=== PATIENT | male | born 1955 | race African-American/Black ===

== ENCOUNTER 2021-07-18 11:52 | Emergency (ER) | payer MEDICARE ==
[2021-07-18] MEDS ORDERED: Aspirin Chewable 81 MG TAB ONE (12:22)
[2021-07-18 12:26] LABS: #Basophils 0.1 10x3/uL (0.0-0.2); #Eosinphils 0.8 10x3/uL (0.0-0.5); #Monocytes 0.5 10x3/uL (0.0-1.1); %Basophils 0.9 % (0.0-2.0); %Eosinophils 9.8 % (0.0-6.0); %Lymphocytes 24.7 % (18.0-47.0); %Monocytes 6.3 % (0.0-10.0); %Neutrophils 58.2 % (40.0-75.0); Mean Corpuscular HGB CONC 32.6 g/dL (32.0-36.0); Mean Corpuscular Hemoglobin 26.1 pg (27.0-33.0); Mean Platelet Volume 11.1 fl (7.4-10.4); Platelet Count 219 10x3/uL (150-450); RBC Distribution Width 13.6 % (11.5-14.5); Red Blood Cell (RBC) Count 5.75 10x6/uL (4.32-5.72); White Blood Cell (WBC) Count 8.5 10x3/uL (3.5-10.5)
[2021-07-18 12:48] LABS: ALT (SGPT) 47 U/L (8-55); AST (SGOT) 24 U/L (5-34); Albumin 4.4 g/dL (3.4-4.8); Alkaline Phosphatase 110 U/L (40-110); Anion Gap 12 mmol/L (10-20); BUN (Urea Nitrogen) 21 mg/dL (8.4-25.7); Bilirubin, Total 0.5 mg/dL (0.2-1.2); Calc. Creatinine Clearance 0 mL/min (70-130); Calcium 8.7 mg/dL (7.8-10.44); Carbon Dioxide 14 mmol/L (23-31); Chloride 113 mmol/L (98-107); Globulin 3.1 g/dL (2.4-3.5); Glucose 173 mg/dL (80-115); Lipase 22 U/L (8-78); Potassium 3.9 mmol/L (3.5-5.1); Protein, Total 7.5 g/dL (5.8-8.1); Sodium 135 mmol/L (136-145)
[2021-07-18 14:08] LABS: Actual Bicarbonate (HCO3v) 15 mEq/L (22-28); Base Excess -10.2 mEq/L (-2.0 to +3.0); Calcium, Ionized (venous) 1.19 mmol/L (1.16-1.32); Chloride (VBG) 111 mmol/L (98-106); Potassium (VBG) 3.75 mmol/L (3.70-5.30); Puncture Site Other Site; RapidComm Collect By Lab; Sodium 139.2 mmol/L (133-146); pH (venous) 7.27 (7.32-7.43)
[2021-07-18] MEDS ORDERED: Ondansetron PF 4 MG/2 ML Vial ONE (14:59)
[2021-07-18] MEDS ORDERED: Albuterol Sulfate 2.5 mg/3 ml Neb ONE ×3 (15:12→17:24)
[2021-07-18] MEDS ORDERED: methylPREDNISolone Sod Succ/PF 125 MG/2 ML VIAL ONE (15:12)
[2021-07-18] MEDS ORDERED: Ipratropium Bromide 2.5 ml Neb ONE ×2 (15:12→17:24)
[2021-07-18 17:21] LABS: SARS-CoV-2 NAA Rapid Test Not Detected (NotDetected)
== END 2021-07-18 18:10 | disposition home or self-care (01) ==
LOC: CSHERS 11:52
DX: J45.901 Unspecified asthma with (acute) exacerbation (principal); E87.2 Acidosis; J06.9 Acute upper respiratory infection, unspecified; I25.2 Old myocardial infarction; J45.909 Unspecified asthma, uncomplicated; I10 Essential (primary) hypertension; Z20.822 Contact with and (suspected) exposure to COVID-19; Z79.899 Other long term (current) drug therapy
CPT/HCPCS: 0240U; 71045; 71275; 80053; 82805; 82962; 83690; 83880; 84484; 85025; 93005; 96374; 96375; 99285; 36415; 36416; J2405; J2930; J7611

== ENCOUNTER 2021-09-10 11:23 | Emergency (ER) | payer MEDICARE ==
[2021-09-10] MEDS ORDERED: Magnesium 2 GM/50 ML BAG (IN WATER) ONE (11:53)
[2021-09-10] MEDS ORDERED: Lorazepam 2 MG/ML VIAL ONE (12:09)
[2021-09-10 12:26] LABS: #Basophils 0.1 10x3/uL (0.0-0.2); #Eosinphils 1.9 10x3/uL (0.0-0.5); #Monocytes 0.4 10x3/uL (0.0-1.1); #Neutrophils 5.8 10x3/uL (1.5-8.4); %Basophils 0.6 % (0.0-2.0); %Eosinophils 18.8 % (0.0-6.0); %Monocytes 4.3 % (0.0-10.0); %Neutrophils 57.8 % (40.0-75.0); Hemoglobin 14.1 g/dL (13.5-17.5); Mean Corpuscular HGB CONC 32.5 g/dL (32.0-36.0); Mean Corpuscular Hemoglobin 26.7 pg (27.0-33.0); Mean Corpuscular Volume 82.2 fl (81.2-95.1); Mean Platelet Volume 11.7 fl (7.4-10.4); Platelet Count 197 10x3/uL (150-450); RBC Distribution Width 13.6 % (11.5-14.5); Red Blood Cell (RBC) Count 5.28 10x6/uL (4.32-5.72); White Blood Cell (WBC) Count 10.1 10x3/uL (3.5-10.5)
[2021-09-10 12:38] LABS: ALT (SGPT) 12 U/L (8-55); AST (SGOT) 14 U/L (5-34); Albumin 3.9 g/dL (3.4-4.8); Alkaline Phosphatase 112 U/L (40-110); Anion Gap 15 mmol/L (10-20); BUN (Urea Nitrogen) 12 mg/dL (8.4-25.7); Bilirubin, Total 0.8 mg/dL (0.2-1.2); CK (CPK) 160 U/L (30-200); Calc. Creatinine Clearance 0 mL/min (70-130); Calcium 9.1 mg/dL (7.8-10.44); Carbon Dioxide 26 mmol/L (23-31); Chloride 101 mmol/L (98-107); Globulin 3.1 g/dL (2.4-3.5); Glucose 403 mg/dL (80-115); Lipase 22 U/L (8-78); Potassium 4.1 mmol/L (3.5-5.1); Sodium 138 mmol/L (136-145)
[2021-09-10 12:59] LABS: Magnesium 1.7 mg/dL (1.6-2.6); Phosphorus 2.3 mg/dL (2.3-4.7)
[2021-09-10 13:41] LABS: SARS-CoV-2 NAA Rapid Test Not Detected (NotDetected)
[2021-09-10 15:35] LABS: Lactic Acid 1.5 mmol/L (0.5-2.2)
[2021-09-10] MEDS ORDERED: Albuterol Sulfate 2.5 mg/3 ml Neb ONE (15:39)
== END 2021-09-10 16:30 | disposition home or self-care (01) ==
LOC: CSHERS 11:23
DX: J45.901 Unspecified asthma with (acute) exacerbation (principal); Z20.822 Contact with and (suspected) exposure to COVID-19; I10 Essential (primary) hypertension; I25.2 Old myocardial infarction; E11.9 Type 2 diabetes mellitus without complications; Z79.899 Other long term (current) drug therapy
CPT/HCPCS: 36415; 71045; 71275; 80053; 82010; 82550; 83605; 83690; 83735; 83880; 84100; 84484; 85025; 85379; 87040; 87804; 93005; 93010; 94640; 94760; 96374; 96375; J2060; J3475; J7611; J7620; U0002

== ENCOUNTER 2021-09-11 21:39 | Inpatient (IN) | payer MEDICARE ==
[2021-09-11] MEDS ORDERED: Albuterol Sulfate 2.5 mg/0.5 ml Neb ONE (22:16)
[2021-09-11 22:48] LABS: SARS-CoV-2 NAA Rapid Test Not Detected (NotDetected)
[2021-09-11 22:58] LABS: #Eosinphils 1.2 10x3/uL (0.0-0.5); #Monocytes 0.5 10x3/uL (0.0-1.1); #Neutrophils 7.4 10x3/uL (1.5-8.4); %Basophils 0.4 % (0.0-2.0); %Eosinophils 10.8 % (0.0-6.0); %Lymphocytes 14.3 % (18.0-47.0); %Monocytes 4.9 % (0.0-10.0); %Neutrophils 69.1 % (40.0-75.0); Hemoglobin 14.5 g/dL (13.5-17.5); Mean Corpuscular HGB CONC 32.9 g/dL (32.0-36.0); Mean Corpuscular Hemoglobin 26.7 pg (27.0-33.0); Mean Corpuscular Volume 81.1 fl (81.2-95.1); Mean Platelet Volume 11.1 fl (7.4-10.4); Platelet Count 215 10x3/uL (150-450); RBC Distribution Width 13.8 % (11.5-14.5); Red Blood Cell (RBC) Count 5.44 10x6/uL (4.32-5.72); White Blood Cell (WBC) Count 10.7 10x3/uL (3.5-10.5)
[2021-09-11 23:05] LABS: ALT (SGPT) 12 U/L (8-55); AST (SGOT) 14 U/L (5-34); Albumin 4.1 g/dL (3.4-4.8); Alkaline Phosphatase 110 U/L (40-110); Anion Gap 14 mmol/L (10-20); BUN (Urea Nitrogen) 19 mg/dL (8.4-25.7); Bilirubin, Total 0.8 mg/dL (0.2-1.2); Calc. Creatinine Clearance 0 mL/min (70-130); Calcium 9.3 mg/dL (7.8-10.44); Carbon Dioxide 28 mmol/L (23-31); Chloride 101 mmol/L (98-107); Globulin 3.1 g/dL (2.4-3.5); Glucose 115 mg/dL (80-115); Lipase 13 U/L (8-78); Potassium 3.5 mmol/L (3.5-5.1); Protein, Total 7.2 g/dL (5.8-8.1); Sodium 139 mmol/L (136-145)
[2021-09-11 23:29] LABS: Actual Bicarbonate (HCO3v) 26 mEq/L (22-28); Base Excess 0.9 mEq/L (-2.0 to +3.0); Calcium, Ionized (venous) 1.11 mmol/L (1.16-1.32); Chloride (VBG) 101 mmol/L (98-106); Hemoglobin (Hb) 15.6 g/dL (12.6-17.4); Potassium (VBG) 3.48 mmol/L (3.70-5.30); Puncture Site Other Site
[2021-09-11] MEDS ORDERED: Guaifenesin DM 100-10/5 ML UDCUP PO PRN (23:36)
[2021-09-11] MEDS ORDERED: Dextrose 5% in Water 1,000 ML IV PRN (23:43)
[2021-09-11] MEDS ORDERED: Dextrose 50% Abboject 50 ML SYRINGE SLOW IVP PRN (23:43)
[2021-09-11] MEDS ORDERED: Calcium Carbonate 500 MG ChewTAB PO PRN (23:59)
[2021-09-11] MEDS ORDERED: Senokot S 8.6-50 MG TAB PO PRN (23:59)
[2021-09-11] MEDS ORDERED: Zolpidem Tartrate 5 MG TAB PO PRN (23:59)
[2021-09-11] MEDS ORDERED: Acetaminophen 325 MG TAB PO PRN (23:59)
[2021-09-12] MEDS ORDERED: methylPREDNISolone Sod Succ/PF 125 MG/2 ML VIAL ONE (00:03)
[2021-09-12] MEDS ORDERED: Magnesium 2 GM/50 ML BAG (IN WATER) ONE (00:04)
[2021-09-12] MEDS ORDERED: Promethazine HCl 25 MG/ML VIAL ONE (00:13)
[2021-09-12 02:34] VITALS: BMI 26.6
[2021-09-12] MEDS: guaiFENesin/Codeine Phosphate 100 mg/10 mg 5 ml UD Cup PO SCH (03:02)
[2021-09-12 04:28] LABS: #Eosinphils 0.8 10x3/uL (0.0-0.5); #Monocytes 0.1 10x3/uL (0.0-1.1); #Neutrophils 8.2 10x3/uL (1.5-8.4); %Basophils 0.3 % (0.0-2.0); %Eosinophils 7.5 % (0.0-6.0); %Lymphocytes 7.8 % (18.0-47.0); %Monocytes 1.2 % (0.0-10.0); %Neutrophils 82.7 % (40.0-75.0); Hemoglobin 13.9 g/dL (13.5-17.5); Mean Corpuscular HGB CONC 32.3 g/dL (32.0-36.0); Mean Corpuscular Hemoglobin 26.2 pg (27.0-33.0); Mean Corpuscular Volume 81.3 fl (81.2-95.1); Mean Platelet Volume 11.6 fl (7.4-10.4); Platelet Count 207 10x3/uL (150-450); RBC Distribution Width 13.7 % (11.5-14.5)
[2021-09-12 04:43] LABS: Anion Gap 15 mmol/L (10-20); BUN (Urea Nitrogen) 21 mg/dL (8.4-25.7); Calc. Creatinine Clearance 90 mL/min (70-130); Calcium 9.2 mg/dL (7.8-10.44); Carbon Dioxide 27 mmol/L (23-31); Chloride 100 mmol/L (98-107); Glucose 178 mg/dL (80-115); Potassium 3.9 mmol/L (3.5-5.1); Sodium 138 mmol/L (136-145)
[2021-09-12] MEDS: methylPREDNISolone Sod Succ 40 MG VIAL IVP SCH ×3 (05:06→22:51)
[2021-09-12] MEDS: Amlodipine 10 MG TAB PO SCH (08:58)
[2021-09-12] MEDS: Benzonatate 100 MG CAP PO SCH ×3 (08:59→20:37)
[2021-09-12] MEDS: Carvedilol 3.125 MG TAB PO SCH ×2 (08:59→20:37)
[2021-09-12] MEDS: Clopidogrel Bisulfate 75 MG TAB PO SCH (08:59)
[2021-09-12] MEDS: Enoxaparin Sodium 40 MG/0.4 ML SYRINGE SC SCH (08:59)
[2021-09-12] MEDS: Azithromycin 500 MG in Sodium Chloride 0.9% 250 ML 250 ML IVPB SCH (08:59)
[2021-09-12] MEDS: Famotidine 20 MG TAB PO SCH ×2 (08:59→20:37)
[2021-09-12] MEDS: Mometasone 200 MCG/Formoterol 5 MCG 120 PUFF INHALER INH SCH ×2 (09:03→19:20)
[2021-09-12] MEDS: HumaLOG 300 UNITS/3 ML VIAL SC PRN ×3 (09:06→15:58)
[2021-09-12] MEDS: Divalproex Sodium DR 500 MG TAB PO SCH ×2 (09:28→20:37)
[2021-09-12 12:51] LABS: Hemoglobin A1c 9.5 % (4.0-6.0)
[2021-09-12] MEDS ORDERED: Non-Formulary Medication 1 EACH (Tadalafil [Tadalafil] 20 MG Tablet) PO PRN (16:04)
[2021-09-12] MEDS ORDERED: Dextrose 50% Abboject 50 ML SYRINGE SLOW IVP PRN (16:05)
[2021-09-12] MEDS ORDERED: Dextrose 5% in Water 1,000 ML IV PRN (16:05)
[2021-09-12] MEDS: Atorvastatin Calcium 40 MG TAB PO SCH (20:37)
[2021-09-12] MEDS: Escitalopram Oxalate 10 mg Tablet PO SCH (20:37)
[2021-09-12] MEDS: Lantus 1000 UNITS/10 ML VIAL SC SCH (20:38)
[2021-09-12] MEDS: DIFLUPREDNATE EA EYE SCH (20:39)
[2021-09-13] MEDS: Insulin Regular 300 UNITS/3 ML VIAL SC PRN ×5 (00:47→21:11)
[2021-09-13] MEDS: guaiFENesin/Codeine Phosphate 100 mg/10 mg 5 ml UD Cup PO SCH (00:47)
[2021-09-13] MEDS: methylPREDNISolone Sod Succ 40 MG VIAL IVP SCH ×3 (06:15→21:11)
[2021-09-13] MEDS: Mometasone 200 MCG/Formoterol 5 MCG 120 PUFF INHALER INH SCH ×2 (07:03→22:40)
[2021-09-13] MEDS: Azithromycin 500 MG in Sodium Chloride 0.9% 250 ML 250 ML IVPB SCH (08:09)
[2021-09-13] MEDS: DIFLUPREDNATE EA EYE SCH ×4 (08:09→21:12)
[2021-09-13] MEDS: Carvedilol 3.125 MG TAB PO SCH ×2 (08:10→20:57)
[2021-09-13] MEDS: Famotidine 20 MG TAB PO SCH ×2 (08:10→20:58)
[2021-09-13] MEDS: Amlodipine 10 MG TAB PO SCH (08:10)
[2021-09-13] MEDS: Clopidogrel Bisulfate 75 MG TAB PO SCH (08:10)
[2021-09-13] MEDS: Divalproex Sodium DR 500 MG TAB PO SCH ×2 (08:11→20:56)
[2021-09-13] MEDS: Benzonatate 100 MG CAP PO SCH ×3 (08:11→20:57)
[2021-09-13] MEDS: Enoxaparin Sodium 40 MG/0.4 ML SYRINGE SC SCH (08:11)
[2021-09-13] MEDS ORDERED: Lantus 1000 UNITS/10 ML VIAL SC SCH (09:00)
[2021-09-13] MEDS ORDERED: HumaLOG 300 UNITS/3 ML VIAL SC SCH (14:00)
[2021-09-13] MEDS ORDERED: Insulin Regular 300 UNITS/3 ML VIAL SC SCH (14:00)
[2021-09-13] MEDS: Atorvastatin Calcium 40 MG TAB PO SCH (20:57)
[2021-09-13] MEDS: Escitalopram Oxalate 10 mg Tablet PO SCH (20:58)
[2021-09-13] MEDS: Lantus 1000 UNITS/10 ML VIAL SC SCH (21:03)
[2021-09-14] MEDS: Mometasone 200 MCG/Formoterol 5 MCG 120 PUFF INHALER INH SCH (08:07)
[2021-09-14] MEDS: Insulin Regular 300 UNITS/3 ML VIAL SC PRN ×2 (08:11→11:52)
[2021-09-14] MEDS: Amlodipine 10 MG TAB PO SCH (08:17)
[2021-09-14] MEDS: Divalproex Sodium DR 500 MG TAB PO SCH (08:17)
[2021-09-14] MEDS: Azithromycin 500 MG in Sodium Chloride 0.9% 250 ML 250 ML IVPB SCH (08:18)
[2021-09-14] MEDS: Carvedilol 3.125 MG TAB PO SCH (08:18)
[2021-09-14] MEDS: Benzonatate 100 MG CAP PO SCH (08:18)
[2021-09-14] MEDS: Clopidogrel Bisulfate 75 MG TAB PO SCH (08:18)
[2021-09-14] MEDS: Enoxaparin Sodium 40 MG/0.4 ML SYRINGE SC SCH (08:19)
[2021-09-14] MEDS: DIFLUPREDNATE EA EYE SCH (08:19)
[2021-09-14] MEDS: Famotidine 20 MG TAB PO SCH (08:19)
[2021-09-14] MEDS ORDERED: Lantus 1000 UNITS/10 ML VIAL SC SCH (09:00)
[2021-09-14 12:28] VITALS: BP 145/75
[2021-09-14 12:32] VITALS: TEMP 98.2
[2021-09-15] MEDS ORDERED: Azithromycin 250 MG TAB PO SCH (09:00)
== END 2021-09-14 12:55 | disposition home or self-care (01) | DRG 189 ==
LOC: CSHERS 21:39 → EEVIPCON 23:58 → CSHIMCU 23:58 → UNDOADMIN 09-12 02:23 → CSHIMCU 09-12 02:23
PROVIDERS: ADMIT Student in an Organized Health Care Education/Training Program; ATTEND Hospitalist
PROC: 5A09357 Assistance with Respiratory Ventilation, Less than 24 Consecutive Hours, Continuous Positive Airway Pressure (ICD-10-PCS; principal; 2021-09-11)
DX: J96.01 Acute respiratory failure with hypoxia (principal); J45.901 Unspecified asthma with (acute) exacerbation; R65.10 Systemic inflammatory response syndrome (SIRS) of non-infectious origin without acute organ dysfunction; Z20.822 Contact with and (suspected) exposure to COVID-19; I25.10 Atherosclerotic heart disease of native coronary artery without angina pectoris; K21.9 Gastro-esophageal reflux disease without esophagitis; I10 Essential (primary) hypertension; E78.2 Mixed hyperlipidemia; E11.65 Type 2 diabetes mellitus with hyperglycemia; Z79.4 Long term (current) use of insulin; Z95.5 Presence of coronary angioplasty implant and graft; Z88.8 Allergy status to other drugs, medicaments and biological substances; Z79.02 Long term (current) use of antithrombotics/antiplatelets; Z79.899 Other long term (current) drug therapy; Z87.891 Personal history of nicotine dependence; Z90.89 Acquired absence of other organs
CPT/HCPCS: 36415; 36416; 71045; 71275; 80048; 80053; 82010; 82550; 82805; 83036; 83605; 83690; 83735; 83880; 84100; 84484; 85025; 85379; 87040; 87804; 93005; 94640; 94660; 94664; 94760; J0456; J1650; J1815; J2060; J2550; J2920; J2930; J3475; J7050; J7611; J7620; U0002

== ENCOUNTER 2021-10-31 10:36 | Inpatient (IN) | payer MEDICARE ==
[2021-10-31 12:12] LABS: Hemoglobin 14.4 g/dL (13.5-17.5); Mean Corpuscular HGB CONC 32.8 g/dL (32.0-36.0); Mean Corpuscular Hemoglobin 26.9 pg (27.0-33.0); Mean Corpuscular Volume 81.9 fl (81.2-95.1); Mean Platelet Volume 12.1 fl (7.4-10.4); Platelet Count 194 10x3/uL (150-450); Red Blood Cell (RBC) Count 5.36 10x6/uL (4.32-5.72); White Blood Cell (WBC) Count 7.6 10x3/uL (3.5-10.5)
[2021-10-31 12:14] LABS: MDiff Complete? YES
[2021-10-31 12:20] LABS: Bilirubin Neg (Negative); Blood, Urine Negative (Negative); Clarity Clear (Clear); Glucose, Urine (Dipstick) Normal (Negative); Ketone, Urine 5 mg/dL (Negative); Leukocyte 25 (Negative); Nitrite Negative (Negative); Protein, Urine (Dipstick) 30 mg/dl (Neg-Trace)
[2021-10-31 12:24] LABS: Bacteria/HPF None Seen HPF (None Seen); Mucous/LPF 1+ LPF (<2+); RBC/HPF 0-3 HPF (0-3); Squamous Epithelial 0-3 HPF (0-3); WBC/HPF 0-3 HPF (0-3)
[2021-10-31 12:28] LABS: ALT (SGPT) 11 U/L (8-55); AST (SGOT) 14 U/L (5-34); Alkaline Phosphatase 117 U/L (40-110); Anion Gap 16 mmol/L (10-20); BUN (Urea Nitrogen) 13 mg/dL (8.4-25.7); Bilirubin, Total 1.9 mg/dL (0.2-1.2); Calc. Creatinine Clearance 0 mL/min (70-130); Calcium 9.3 mg/dL (7.8-10.44); Carbon Dioxide 26 mmol/L (23-31); Chloride 104 mmol/L (98-107); Globulin 2.9 g/dL (2.4-3.5); Glucose 119 mg/dL (80-115); Lipase 15 U/L (8-78); Magnesium 1.9 mg/dL (1.6-2.6); Potassium 3.4 mmol/L (3.5-5.1); Protein, Total 6.9 g/dL (5.8-8.1); Sodium 143 mmol/L (136-145)
[2021-10-31] MEDS ORDERED: Ondansetron PF 4 MG/2 ML Vial ONE (12:38)
[2021-10-31] MEDS ORDERED: Ketorolac Tromethamine 30 MG/ML VIAL ONE (12:38)
[2021-10-31] MEDS ORDERED: EPINEPHrine 1 MG/ML AMP ONE (13:18)
[2021-10-31] MEDS ORDERED: methylPREDNISolone Sod Succ/PF 125 MG/2 ML VIAL ONE (13:18)
[2021-10-31] MEDS ORDERED: diphenhydrAMINE 50 MG/ML VIAL ONE (13:18)
[2021-10-31 13:19] LABS: Eosinophils 32 % (0-10); Lymphocytes 26 % (21-51); Monocytes 5 % (0-10); Neutrophil 36 % (42-75)
[2021-10-31] MEDS ORDERED: Famotidine/PF 20 mg/2ml Vial ONE (13:19)
[2021-10-31 13:28] LABS: Platelet Morphology Comment Appears Adequate
[2021-10-31] MEDS ORDERED: Lorazepam 2 MG/ML VIAL ONE ×2 (14:23→15:40)
[2021-10-31] MEDS ORDERED: Albuterol Sulfate 2.5 mg/3 ml Neb ONE (15:16)
[2021-10-31 15:41] LABS: Actual Bicarbonate (HCO3a) 26.5 mEq/L (22-28); Base Excess (BEa) -1.2 mEq/L (-2.0 to +3.0); CO2 Tension 56.2 mmHg (35.0-45.0); Calcium, Ionized (arterial) 1.13 mmol/L (1.12-1.30); Carboxyhemoglobin (COHb) 0.4 gm% (0.0-3.0); Potassium - ABG Lab 3.3 mmol/L (3.70-5.30); Puncture Site RFA; pH, Arterial 7.29 (7.35-7.45)
[2021-10-31 15:55] LABS: Amphetamine Not Detected (NotDetected); Barbiturates Screen Not Detected (NotDetected); Benzodiazepine Screen Not Detected (NotDetected); Cocaine Metabolite Screen Not Detected (NotDetected); Methadone Not Detected (NotDetected); Methamphetamine Not Detected (NotDetected); Opiate Screen Detected (NotDetected); Oxycodone Screen Not Detected (NotDetected); Phencyclidine (PCP) Not Detected (NotDetected); THC/Cannabinoid Screen Not Detected (NotDetected); Tricyclic Screen Not Detected (NotDetected)
[2021-10-31 16:11] LABS: SARS-CoV-2 NAA Rapid Test Not Detected (NotDetected)
[2021-10-31 16:12] LABS: Acetaminophen Less than 6.0 mcg/mL (10.0-30.0); Alcohol Less than 10 mg/dL (Less than 10); Salicylate Less than 8.0 mg/dL (15.0-30.0)
[2021-10-31] MEDS ORDERED: methylPREDNISolone Sod Succ 40 MG VIAL IVP SCH (18:00)
[2021-10-31] MEDS ORDERED: cefTRIAXone\\ROCEPHIN 1 GM in Sodium Chloride 0.9% 100 ML IVPB SCH ×3 (18:00→22:00)
[2021-10-31 18:29] VITALS: BMI 37.6
[2021-10-31] MEDS ORDERED: Acetaminophen 650 MG Suppository PR PRN (18:51)
[2021-10-31] MEDS ORDERED: Acetaminophen 325 MG TAB PO PRN (18:51)
[2021-10-31] MEDS ORDERED: Dextrose 5% in Water 1,000 ML IV PRN (19:00)
[2021-10-31] MEDS ORDERED: Dextrose 50% Abboject 50 ML SYRINGE SLOW IVP PRN (19:00)
[2021-10-31 19:38] LABS: INR-International Normal Ratio 1.1; PTT 25.6 sec (22.0-33.0); Prothrombin Time 11.8 sec (9.5-12.1)
[2021-10-31 19:40] LABS: Bilirubin, Direct 0.5 mg/dL (0.1-0.3); Bilirubin, Total 1.9 mg/dL (0.2-1.2); Phosphorus 2.5 mg/dL (2.3-4.7)
[2021-10-31] MEDS ORDERED: Azithromycin 500 MG in Sodium Chloride 0.9% 250 ML 250 ML IVPB SCH ×2 (20:00→21:00)
[2021-10-31 20:01] LABS: Thyroid Stimulating Hormone 0.6404 uIU/mL (0.35-4.94)
[2021-10-31] MEDS ORDERED: Gabapentin 100 MG CAP PO PRN (20:32)
[2021-10-31] MEDS ORDERED: Enoxaparin Sodium 40 MG/0.4 ML SYRINGE SC SCH (21:00)
[2021-10-31] MEDS ORDERED: Doxycycline 100 MG in Syringe 0 ML IVPB SCH (21:00)
[2021-10-31] MEDS ORDERED: Famotidine/PF 20 mg/2ml Vial SLOW IVP SCH (21:00)
[2021-10-31] MEDS: Doxycycline 100 MG in Sodium Chloride 0.9% 100 ML IVPB SCH (22:26)
[2021-10-31] MEDS: methylPREDNISolone Sod Succ 40 MG VIAL IVP SCH (22:28)
[2021-10-31] MEDS: HumaLOG 300 UNITS/3 ML VIAL SC PRN (22:43)
[2021-10-31 22:46] LABS: HIV (1/2) Antibody/Antigen Non-Reactive (NonReactive); HIV 1/2 INDEX 0.14 S/CO (<1.00)
[2021-10-31] MEDS: Ketorolac Tromethamine 10 MG TAB PO SCH (23:20)
[2021-11-01] MEDS: methylPREDNISolone Sod Succ 40 MG VIAL IVP SCH (04:10)
[2021-11-01] MEDS: HumaLOG 300 UNITS/3 ML VIAL SC PRN (04:10)
[2021-11-01 04:45] LABS: #Monocytes 0.1 10x3/uL (0.0-1.1); #Neutrophils 7.2 10x3/uL (1.5-8.4); %Lymphocytes 10.5 % (18.0-47.0); %Neutrophils 88.1 % (40.0-75.0); Hemoglobin 14.1 g/dL (13.5-17.5); Mean Corpuscular HGB CONC 33.3 g/dL (32.0-36.0); Mean Corpuscular Hemoglobin 26.9 pg (27.0-33.0); Mean Corpuscular Volume 80.9 fl (81.2-95.1); Mean Platelet Volume 11.7 fl (7.4-10.4); Platelet Count 198 10x3/uL (150-450); RBC Distribution Width 12.5 % (11.5-14.5); Red Blood Cell (RBC) Count 5.24 10x6/uL (4.32-5.72); White Blood Cell (WBC) Count 8.2 10x3/uL (3.5-10.5)
[2021-11-01 05:00] LABS: ALT (SGPT) 12 U/L (8-55); AST (SGOT) 15 U/L (5-34); Albumin 3.9 g/dL (3.4-4.8); Alkaline Phosphatase 112 U/L (40-110); Anion Gap 15 mmol/L (10-20); BUN (Urea Nitrogen) 20 mg/dL (8.4-25.7); Bilirubin, Total 1.2 mg/dL (0.2-1.2); Calc. Creatinine Clearance 126 mL/min (70-130); Calcium 8.8 mg/dL (7.8-10.44); Carbon Dioxide 22 mmol/L (23-31); Chloride 105 mmol/L (98-107); Globulin 2.9 g/dL (2.4-3.5); Glucose 216 mg/dL (80-115); Potassium 4.1 mmol/L (3.5-5.1); Protein, Total 6.8 g/dL (5.8-8.1); Sodium 138 mmol/L (136-145)
[2021-11-01] MEDS: Ketorolac Tromethamine 10 MG TAB PO SCH (05:46)
[2021-11-01] MEDS ORDERED: predniSONE 20 MG TAB PO SCH (08:00)
[2021-11-01] MEDS ORDERED: Famotidine 20 MG TAB PO SCH (09:00)
[2021-11-01] MEDS ORDERED: Carvedilol 3.125 MG TAB PO SCH (09:00)
[2021-11-01] MEDS ORDERED: Enoxaparin Sodium 40 MG/0.4 ML SYRINGE SC SCH (09:00)
[2021-11-01] MEDS ORDERED: Divalproex Sodium DR 500 MG TAB PO SCH (09:00)
[2021-11-01] MEDS ORDERED: Clopidogrel Bisulfate 75 MG TAB PO SCH (09:00)
[2021-11-01] MEDS: Doxycycline 100 MG in Sodium Chloride 0.9% 100 ML IVPB SCH (09:42)
[2021-11-01 11:34] VITALS: BP 126/69; TEMP 98.8
[2021-11-01 12:28] LABS: Hemoglobin A1c 8.7 % (4.0-6.0)
[2021-11-01 15:46] LABS: Hep C IgG Ab Non-Reactive (NonReactive); Hep C Index 0.14 S/CO (0-0.79)
[2021-11-01] MEDS ORDERED: Mometasone/Formoterol 200/5 60 PUFF INH SCH (18:30)
[2021-11-01] MEDS ORDERED: Atorvastatin Calcium 40 MG TAB PO SCH (21:00)
== END 2021-11-01 11:46 | disposition home or self-care (01) | DRG 727 ==
LOC: CSHERS 10:36 → CSHIMCU 16:56 → CSHTELE 20:41
PROVIDERS: ADMIT Family Medicine; ATTEND Family Medicine
DX: N45.1 Epididymitis (principal); J96.01 Acute respiratory failure with hypoxia; J96.02 Acute respiratory failure with hypercapnia; J45.901 Unspecified asthma with (acute) exacerbation; Z20.822 Contact with and (suspected) exposure to COVID-19; I25.10 Atherosclerotic heart disease of native coronary artery without angina pectoris; I45.10 Unspecified right bundle-branch block; R94.31 Abnormal electrocardiogram [ECG] [EKG]; R16.0 Hepatomegaly, not elsewhere classified; N50.3 Cyst of epididymis; K76.0 Fatty (change of) liver, not elsewhere classified; E11.9 Type 2 diabetes mellitus without complications; Z87.891 Personal history of nicotine dependence; Z95.5 Presence of coronary angioplasty implant and graft; Z90.89 Acquired absence of other organs
CPT/HCPCS: 36415; 36416; 36600; 71045; 74177; 76870; 80053; 80306; 80307; 81003; 81015; 82247; 82805; 83036; 83605; 83690; 83735; 84100; 84443; 84484; 85025; 85610; 85730; 86803; 87389; 87591; 93005; 93010; 93306; 93970; 93976; 94640; 96374; 96375; 96376; J0171; J0696; J1200; J1650; J1815; J1885; J2060; J2405; J2920; J2930; J3490; J7512; J7611; J7620; S0028

== ENCOUNTER 2022-03-05 14:51 | Inpatient (IN) | payer MEDICARE ==
[~2022-03-05 14:51] MED LIST: Iopamidol 370 76% 100 ML VIAL ONE
[2022-03-05] MEDS ORDERED: Albuterol Sulfate 2.5 mg/3 ml Neb ONE ×2 (15:10→15:34)
[2022-03-05] MEDS ORDERED: methylPREDNISolone Sod Succ/PF 125 MG/2 ML VIAL ONE (15:12)
[2022-03-05] MEDS ORDERED: Magnesium 2 GM/50 ML BAG (IN WATER) ONE (15:12)
[2022-03-05 15:33] LABS: #Monocytes 0.3 10x3/uL (0.0-1.1); #Neutrophils 2.8 10x3/uL (1.5-8.4); %Basophils 0.7 % (0.0-2.0); %Eosinophils 0.4 % (0.0-6.0); %Lymphocytes 29.1 % (18.0-47.0); %Monocytes 5.6 % (0.0-10.0); %Neutrophils 63.8 % (40.0-75.0); Hemoglobin 14.4 g/dL (13.5-17.5); Mean Corpuscular HGB CONC 33.3 g/dL (32.0-36.0); Mean Corpuscular Hemoglobin 26.3 pg (27.0-33.0); Mean Platelet Volume 11.8 fl (7.4-10.4); Platelet Count 242 10x3/uL (150-450); RBC Distribution Width 12.7 % (11.5-14.5); Red Blood Cell (RBC) Count 5.48 10x6/uL (4.32-5.72); White Blood Cell (WBC) Count 4.5 10x3/uL (3.5-10.5)
[2022-03-05 15:49] LABS: ALT (SGPT) 19 U/L (8-55); AST (SGOT) 23 U/L (5-34); Albumin 4.1 g/dL (3.4-4.8); Alkaline Phosphatase 111 U/L (40-110); Anion Gap 18 mmol/L (10-20); BUN (Urea Nitrogen) 16 mg/dL (8.4-25.7); Bilirubin, Total 1.2 mg/dL (0.2-1.2); CK (CPK) 207 U/L (30-200); Calc. Creatinine Clearance 0 mL/min (70-130); Calcium 9.5 mg/dL (7.8-10.44); Carbon Dioxide 22 mmol/L (23-31); Chloride 106 mmol/L (98-107); Estimated GFR 74; Globulin 3.1 g/dL (2.4-3.5); Glucose 113 mg/dL (80-115); Magnesium 1.8 mg/dL (1.6-2.6); Potassium 3.5 mmol/L (3.5-5.1); Protein, Total 7.2 g/dL (5.8-8.1); Sodium 142 mmol/L (136-145)
[2022-03-05 16:34] LABS: SARS-CoV-2 NAA Rapid Test Not Detected (NotDetected)
[2022-03-05 16:47] LABS: Actual Bicarbonate (HCO3a) 27.4 mEq/L (22-28); Base Excess (BEa) 1.7 mEq/L (-2.0 to +3.0); CO2 Tension 46.7 mmHg (35.0-45.0); Calcium, Ionized (arterial) 1.18 mmol/L (1.12-1.30); Carboxyhemoglobin (COHb) 0.4 gm% (0.0-3.0); Hemoglobin (Hb) 15.4 g/dL (14.0-18.0); Potassium - ABG Lab 3.1 mmol/L (3.70-5.30); Puncture Site LRA; RapidComm Collect By CP.BR1; pH, Arterial 7.39 (7.35-7.45)
[2022-03-05 16:52] LABS: ALV-art Gradient 431.375 mmHg (0-20)
[2022-03-05] MEDS ORDERED: Cefepime 2 GM VIAL ONE (17:37)
[2022-03-05] MEDS ORDERED: Senokot S 8.6-50 MG TAB PO PRN (17:40)
[2022-03-05] MEDS ORDERED: Ondansetron PF 4 MG/2 ML Vial IVP PRN (17:40)
[2022-03-05] MEDS ORDERED: Bisacodyl 5 MG TAB PO PRN (17:40)
[2022-03-05] MEDS ORDERED: Ondansetron ODT 4 MG TAB PO PRN (17:40)
[2022-03-05] MEDS ORDERED: Bisacodyl 10 MG SUPP PR PRN (17:40)
[2022-03-05] MEDS ORDERED: Dextrose 5% in Water 1,000 ML IV PRN ×2 (17:46→19:36)
[2022-03-05] MEDS ORDERED: Dextrose 50% Abboject 50 ML SYRINGE SLOW IVP PRN ×2 (17:46→19:36)
[2022-03-05] MEDS ORDERED: Guaifenesin DM 100-10/5 ML UDCUP PO PRN (19:40)
[2022-03-05] MEDS: Carvedilol 3.125 MG TAB PO SCH (20:40)
[2022-03-05] MEDS: Atorvastatin Calcium 40 MG TAB PO SCH (20:40)
[2022-03-05] MEDS: Montelukast Sodium 10 mg Tablet PO SCH (20:40)
[2022-03-05] MEDS: methylPREDNISolone Sod Succ 40 MG VIAL IVP SCH (20:40)
[2022-03-05] MEDS: Escitalopram Oxalate 10 mg Tablet PO SCH (20:40)
[2022-03-05] MEDS: guaiFENesin ER 600 MG TAB PO SCH (20:40)
[2022-03-05] MEDS: Acetylcysteine 800 MG/4 ML VIAL PO SCH (20:40)
[2022-03-05] MEDS: Cefdinir 300 MG CAP PO SCH (20:44)
[2022-03-05] MEDS: HumaLOG 300 UNITS/3 ML VIAL SC PRN (20:51)
[2022-03-05] MEDS ORDERED: Famotidine 20 MG TAB PO SCH (21:00)
[2022-03-05] MEDS ORDERED: Famotidine/PF 20 mg/2ml Vial SLOW IVP SCH (21:00)
[2022-03-05] MEDS ORDERED: Vancomycin HCl 1 GM in Sodium Chloride 0.9% 250 ML 300 ML IVPB SCH (21:00)
[2022-03-05] MEDS ORDERED: Mometasone/Formoterol 200/5 60 PUFF INH SCH (22:00)
[2022-03-05] MEDS ORDERED: Cefepime 2 GM in Sodium Chloride 0.9% 100 ML IVPB SCH (22:00)
[2022-03-05 22:34] LABS: Hemoglobin A1c 7.6 % (4.0-6.0)
[2022-03-06 04:17] LABS: Mean Corpuscular HGB CONC 33.1 g/dL (32.0-36.0); Mean Corpuscular Hemoglobin 25.7 pg (27.0-33.0); Mean Corpuscular Volume 77.8 fl (81.2-95.1); Mean Platelet Volume 11.9 fl (7.4-10.4); Platelet Count 243 10x3/uL (150-450); RBC Distribution Width 12.7 % (11.5-14.5); Red Blood Cell (RBC) Count 5.44 10x6/uL (4.32-5.72); White Blood Cell (WBC) Count 9.2 10x3/uL (3.5-10.5)
[2022-03-06 04:30] LABS: PTT 25.4 sec (22.0-33.0)
[2022-03-06 04:40] LABS: ALT (SGPT) 17 U/L (8-55); AST (SGOT) 14 U/L (5-34); Albumin 3.8 g/dL (3.4-4.8); Alkaline Phosphatase 115 U/L (40-110); Anion Gap 15 mmol/L (10-20); BUN (Urea Nitrogen) 17 mg/dL (8.4-25.7); Bilirubin, Direct 0.4 mg/dL (0.1-0.3); Bilirubin, Total 0.9 mg/dL (0.2-1.2); Calc. Creatinine Clearance 88 mL/min (70-130); Calcium 9.3 mg/dL (7.8-10.44); Carbon Dioxide 22 mmol/L (23-31); Cardiac Risk 3.1 (Less than 4.5); Chloride 107 mmol/L (98-107); Cholesterol 132 mg/dl (< 200 Desired); Estimated GFR 80; Glucose 293 mg/dL (80-115); HDL Cholesterol 42 mg/dL (>60 Neg Risk); LDL Cholesterol, Calculated 83 mg/dL; Magnesium 2.1 mg/dL (1.6-2.6); Potassium 4.1 mmol/L (3.5-5.1); Protein, Total 6.8 g/dL (5.8-8.1); Sodium 140 mmol/L (136-145); Triglycerides 37 mg/dL (Less than 150)
[2022-03-06] MEDS: methylPREDNISolone Sod Succ 40 MG VIAL IVP SCH (05:05)
[2022-03-06] MEDS: HumaLOG 300 UNITS/3 ML VIAL SC PRN ×4 (06:06→20:55)
[2022-03-06 06:11] LABS: MDiff Complete? YES; Manual Diff?? YES
[2022-03-06 06:19] VITALS: BMI 25.7
[2022-03-06] MEDS: Mometasone/Formoterol 200/5 60 PUFF INH SCH ×2 (06:25→19:00)
[2022-03-06 07:10] LABS: Band 2 % (5-11); Lymphocytes 7 % (21-51); Monocytes 1 % (0-10); Neutrophil 90 % (42-75)
[2022-03-06 07:11] LABS: Platelet Morphology Comment Appears Adequate
[2022-03-06] MEDS ORDERED: Non-Formulary Medication 1 EACH (Tadalafil [Tadalafil] 20 MG Tablet) PO SCH (09:00)
[2022-03-06] MEDS: Amlodipine 10 MG TAB PO SCH (09:05)
[2022-03-06] MEDS: Enoxaparin Sodium 40 MG/0.4 ML SYRINGE SC SCH (09:05)
[2022-03-06] MEDS: Clopidogrel Bisulfate 75 MG TAB PO SCH (09:06)
[2022-03-06] MEDS: Carvedilol 3.125 MG TAB PO SCH ×2 (09:06→20:51)
[2022-03-06] MEDS: guaiFENesin ER 600 MG TAB PO SCH ×2 (09:06→20:50)
[2022-03-06] MEDS: Fluticasone Propionate Nasal Spray 16 gm Bottle NASAL SCH (09:07)
[2022-03-06] MEDS: Acetylcysteine 800 MG/4 ML VIAL PO SCH ×2 (09:07→20:49)
[2022-03-06] MEDS: Loratadine 10 MG TAB PO SCH (09:11)
[2022-03-06] MEDS: Ascorbic Acid 500 mg Chewable Tablet PO SCH ×2 (09:11→20:50)
[2022-03-06] MEDS: Cefdinir 300 MG CAP PO SCH ×2 (09:17→20:50)
[2022-03-06] MEDS: Montelukast Sodium 10 mg Tablet PO SCH (20:50)
[2022-03-06] MEDS: Escitalopram Oxalate 10 mg Tablet PO SCH (20:50)
[2022-03-06] MEDS: Atorvastatin Calcium 40 MG TAB PO SCH (20:51)
[2022-03-06] MEDS: ALPRAZolam 0.5 MG TAB PO PRN (21:04)
[2022-03-07] MEDS: HYDROcodone/Acetaminophen 10/325 mg Tablet PO SCH ×4 (03:33→17:32)
[2022-03-07 04:56] LABS: #Monocytes 0.8 10x3/uL (0.0-1.1); #Neutrophils 13.3 10x3/uL (1.5-8.4); %Basophils 0.2 % (0.0-2.0); %Eosinophils 0.1 % (0.0-6.0); %Lymphocytes 12.9 % (18.0-47.0); %Neutrophils 81.4 % (40.0-75.0); Hemoglobin 13.8 g/dL (13.5-17.5); Mean Corpuscular Hemoglobin 25.7 pg (27.0-33.0); Mean Platelet Volume 11.5 fl (7.4-10.4); Platelet Count 235 10x3/uL (150-450); RBC Distribution Width 12.8 % (11.5-14.5); Red Blood Cell (RBC) Count 5.36 10x6/uL (4.32-5.72); White Blood Cell (WBC) Count 16.3 10x3/uL (3.5-10.5)
[2022-03-07 05:05] LABS: Anion Gap 14 mmol/L (10-20); BUN (Urea Nitrogen) 19 mg/dL (8.4-25.7); Calc. Creatinine Clearance 100 mL/min (70-130); Calcium 8.9 mg/dL (7.8-10.44); Carbon Dioxide 26 mmol/L (23-31); Chloride 106 mmol/L (98-107); Estimated GFR 94; Glucose 128 mg/dL (80-115); Magnesium 2.1 mg/dL (1.6-2.6); Potassium 3.4 mmol/L (3.5-5.1); Sodium 143 mmol/L (136-145)
[2022-03-07] MEDS ORDERED: Iopamidol 370 76% 100 ML VIAL ONE (08:00)
[2022-03-07] MEDS ORDERED: Potassium Chloride 20 MEQ TAB PO SCH (08:00)
[2022-03-07] MEDS: predniSONE 20 MG TAB PO SCH (09:14)
[2022-03-07] MEDS: Acetylcysteine 800 MG/4 ML VIAL PO SCH ×2 (09:14→21:03)
[2022-03-07] MEDS: guaiFENesin ER 600 MG TAB PO SCH ×2 (09:14→21:03)
[2022-03-07] MEDS: Ascorbic Acid 500 mg Chewable Tablet PO SCH ×2 (09:14→21:03)
[2022-03-07] MEDS: Loratadine 10 MG TAB PO SCH (09:14)
[2022-03-07] MEDS: Cefdinir 300 MG CAP PO SCH ×2 (09:14→21:03)
[2022-03-07] MEDS: Clopidogrel Bisulfate 75 MG TAB PO SCH (09:15)
[2022-03-07] MEDS: Carvedilol 3.125 MG TAB PO SCH ×2 (09:15→21:03)
[2022-03-07] MEDS: Amlodipine 10 MG TAB PO SCH (09:16)
[2022-03-07] MEDS: Enoxaparin Sodium 40 MG/0.4 ML SYRINGE SC SCH (09:17)
[2022-03-07] MEDS: Fluticasone Propionate Nasal Spray 16 gm Bottle NASAL SCH ×2 (09:17→21:03)
[2022-03-07] MEDS: Mometasone/Formoterol 200/5 60 PUFF INH SCH ×2 (10:20→21:30)
[2022-03-07] MEDS ORDERED: Lactated Ringer's 1,000 ML IV SCH (16:45)
[2022-03-07] MEDS: Montelukast Sodium 10 mg Tablet PO SCH (21:03)
[2022-03-07] MEDS: Escitalopram Oxalate 10 mg Tablet PO SCH (21:03)
[2022-03-07] MEDS: Atorvastatin Calcium 40 MG TAB PO SCH (21:03)
[2022-03-07] MEDS: ALPRAZolam 0.5 MG TAB PO PRN (21:15)
[2022-03-08] MEDS: HYDROcodone/Acetaminophen 10/325 mg Tablet PO SCH ×3 (00:15→11:50)
[2022-03-08 05:31] LABS: Anion Gap 14 mmol/L (10-20); BUN (Urea Nitrogen) 17 mg/dL (8.4-25.7); Calc. Creatinine Clearance 103 mL/min (70-130); Calcium 8.4 mg/dL (7.8-10.44); Carbon Dioxide 26 mmol/L (23-31); Chloride 105 mmol/L (98-107); Estimated GFR 95; Glucose 179 mg/dL (80-115); Magnesium 1.8 mg/dL (1.6-2.6); Potassium 3.2 mmol/L (3.5-5.1); Sodium 142 mmol/L (136-145)
[2022-03-08 05:39] LABS: #Monocytes 0.6 10x3/uL (0.0-1.1); %Basophils 0.2 % (0.0-2.0); %Eosinophils 0.4 % (0.0-6.0); %Lymphocytes 22.1 % (18.0-47.0); %Monocytes 5.7 % (0.0-10.0); %Neutrophils 71.4 % (40.0-75.0); Hemoglobin 12.7 g/dL (13.5-17.5); Mean Corpuscular HGB CONC 34.1 g/dL (32.0-36.0); Mean Corpuscular Hemoglobin 26.4 pg (27.0-33.0); Mean Corpuscular Volume 77.3 fl (81.2-95.1); Mean Platelet Volume 11.7 fl (7.4-10.4); Platelet Count 192 10x3/uL (150-450); RBC Distribution Width 12.9 % (11.5-14.5); Red Blood Cell (RBC) Count 4.81 10x6/uL (4.32-5.72); White Blood Cell (WBC) Count 9.7 10x3/uL (3.5-10.5)
[2022-03-08] MEDS: HumaLOG 300 UNITS/3 ML VIAL SC PRN ×2 (05:47→11:51)
[2022-03-08] MEDS ORDERED: Potassium Chloride 40 MEQ in Premix Bag 1 BAG IVPB SCH (06:45)
[2022-03-08] MEDS: Mometasone/Formoterol 200/5 60 PUFF INH SCH (07:30)
[2022-03-08] MEDS ORDERED: Potassium Chloride 20 MEQ TAB PO SCH (08:00)
[2022-03-08] MEDS ORDERED: Magnesium 2 GM/50 ML(in water) 2 GM in Premix Bag 1 BAG IVPB SCH (08:00)
[2022-03-08] MEDS: Potassium Chloride 20 MEQ in Premix Bag 1 BAG IVPB SCH ×2 (08:21→12:59)
[2022-03-08] MEDS: Enoxaparin Sodium 40 MG/0.4 ML SYRINGE SC SCH (08:31)
[2022-03-08] MEDS: Clopidogrel Bisulfate 75 MG TAB PO SCH (08:32)
[2022-03-08] MEDS: Cefdinir 300 MG CAP PO SCH (08:32)
[2022-03-08] MEDS: Carvedilol 3.125 MG TAB PO SCH (08:32)
[2022-03-08] MEDS: Amlodipine 10 MG TAB PO SCH (08:33)
[2022-03-08] MEDS: Ascorbic Acid 500 mg Chewable Tablet PO SCH (08:33)
[2022-03-08] MEDS: predniSONE 20 MG TAB PO SCH (08:33)
[2022-03-08] MEDS: guaiFENesin ER 600 MG TAB PO SCH (08:33)
[2022-03-08] MEDS: Loratadine 10 MG TAB PO SCH (08:33)
[2022-03-08] MEDS: Acetylcysteine 800 MG/4 ML VIAL PO SCH (08:33)
[2022-03-08] MEDS: Fluticasone Propionate Nasal Spray 16 gm Bottle NASAL SCH (08:57)
[2022-03-08 16:24] VITALS: BP 136/69; TEMP 97.7
== END 2022-03-08 16:57 | disposition home or self-care (01) | DRG 189 ==
LOC: CSHERS 14:51 → CSHICU 19:13 → CSHTELE 03-06 19:23
PROVIDERS: ADMIT Student in an Organized Health Care Education/Training Program; ATTEND Family Medicine
PROC: 5A09357 Assistance with Respiratory Ventilation, Less than 24 Consecutive Hours, Continuous Positive Airway Pressure (ICD-10-PCS; principal; 2022-03-05)
DX: J96.01 Acute respiratory failure with hypoxia (principal); J44.1 Chronic obstructive pulmonary disease with (acute) exacerbation; J45.901 Unspecified asthma with (acute) exacerbation; R65.10 Systemic inflammatory response syndrome (SIRS) of non-infectious origin without acute organ dysfunction; I10 Essential (primary) hypertension; E11.9 Type 2 diabetes mellitus without complications; F41.9 Anxiety disorder, unspecified; F32.A Depression, unspecified; K21.9 Gastro-esophageal reflux disease without esophagitis; E78.2 Mixed hyperlipidemia; E11.65 Type 2 diabetes mellitus with hyperglycemia; E11.22 Type 2 diabetes mellitus with diabetic chronic kidney disease; N18.2 Chronic kidney disease, stage 2 (mild); E11.51 Type 2 diabetes mellitus with diabetic peripheral angiopathy without gangrene; I65.22 Occlusion and stenosis of left carotid artery; G89.29 Other chronic pain; J32.4 Chronic pansinusitis; J30.9 Allergic rhinitis, unspecified; Z20.822 Contact with and (suspected) exposure to COVID-19; Z88.5 Allergy status to narcotic agent; Z88.8 Allergy status to other drugs, medicaments and biological substances; Z98.890 Other specified postprocedural states; I25.2 Old myocardial infarction; Z87.891 Personal history of nicotine dependence; Z79.51 Long term (current) use of inhaled steroids; Z79.899 Other long term (current) drug therapy; Z79.4 Long term (current) use of insulin; Z95.5 Presence of coronary angioplasty implant and graft
CPT/HCPCS: 36415; 36416; 36600; 70498; 71045; 71275; 80048; 80053; 80061; 80076; 82306; 82550; 82785; 82805; 83036; 83605; 83735; 83880; 84443; 84484; 85025; 85379; 85610; 85730; 86850; 86900; 86901; 87040; 93005; 93010; 93306; 93880; 93925; 93970; 94640; 94644; 94660; 94760; 96365; 96367; 96375; J0692; J1650; J1815; J2920; J2930; J3370; J3475; J3480; J7120; J7512; J7611; J7620; Q9967

== ENCOUNTER 2022-03-26 15:20 | Outpatient (CLI) | payer MEDICARE | END 2022-03-26 15:21 | disposition home or self-care (01) | LOC: CSHULT 15:20 | PROVIDERS: ATTEND Family Medicine | DX: E04.1 Nontoxic single thyroid nodule (principal) | CPT/HCPCS: 76536 ==

== ENCOUNTER 2022-07-01 09:43 | Outpatient (CLI) | payer MEDICARE | END 2022-07-01 09:44 | disposition home or self-care (01) | LOC: CSHCP 09:43 | PROVIDERS: ATTEND Internal Medicine | DX: J44.9 Chronic obstructive pulmonary disease, unspecified (principal); J45.50 Severe persistent asthma, uncomplicated | CPT/HCPCS: 94060; 94618; 94726; 94729 ==

== ENCOUNTER 2022-07-29 15:35 | Inpatient (IN) | payer MEDICARE ==
[2022-07-29] MEDS ORDERED: Magnesium 2 GM/50 ML BAG (IN WATER) ONE (15:41)
[2022-07-29] MEDS ORDERED: Ondansetron PF 4 MG/2 ML Vial ONE ×2 (15:41→16:23)
[2022-07-29 16:23] LABS: Actual Bicarbonate (HCO3v) 24 mEq/L (22-28); Base Excess -2.6 mEq/L (-2.0 to +3.0); Calcium, Ionized (venous) 1.16 mmol/L (1.16-1.32); Chloride (VBG) 105 mmol/L (98-106); Hemoglobin (Hb) 15.9 g/dL (12.6-17.4); Potassium (VBG) 3.54 mmol/L (3.70-5.30); Puncture Site Other Site; RapidComm Collect By CBN; Sodium 139.9 mmol/L (133-146); pH (venous) 7.31 (7.32-7.43)
[2022-07-29 16:29] LABS: #Eosinphils 0.1 10x3/uL (0.0-0.5); #Monocytes 0.5 10x3/uL (0.0-1.1); #Neutrophils 4.6 10x3/uL (1.5-8.4); %Basophils 0.4 % (0.0-2.0); %Eosinophils 0.7 % (0.0-6.0); %Lymphocytes 28.5 % (18.0-47.0); %Neutrophils 63.3 % (40.0-75.0); Hemoglobin 14.8 g/dL (13.5-17.5); Mean Corpuscular HGB CONC 32.3 g/dL (32.0-36.0); Mean Corpuscular Hemoglobin 25.2 pg (27.0-33.0); Mean Platelet Volume 11.8 fl (7.4-10.4); Platelet Count 236 10x3/uL (150-450); RBC Distribution Width 13.6 % (11.5-14.5); Red Blood Cell (RBC) Count 5.87 10x6/uL (4.32-5.72); White Blood Cell (WBC) Count 7.3 10x3/uL (3.5-10.5)
[2022-07-29 16:39] LABS: ALT (SGPT) 14 U/L (8-55); AST (SGOT) 19 U/L (5-34); Albumin 3.7 g/dL (3.4-4.8); Alkaline Phosphatase 136 U/L (40-110); Anion Gap 17 mmol/L (10-20); BUN (Urea Nitrogen) 20 mg/dL (8.4-25.7); Bilirubin, Total 1.1 mg/dL (0.2-1.2); Calc. Creatinine Clearance 0 mL/min (70-130); Calcium 9.1 mg/dL (7.8-10.44); Carbon Dioxide 20 mmol/L (23-31); Chloride 108 mmol/L (98-107); Estimated GFR 69; Globulin 2.9 g/dL (2.4-3.5); Glucose 151 mg/dL (80-115); Potassium 3.8 mmol/L (3.5-5.1); Protein, Total 6.6 g/dL (5.8-8.1); Sodium 141 mmol/L (136-145)
[2022-07-29] MEDS ORDERED: cefTRIAXone\\ROCEPHIN 1 GM VIAL ONE (16:40)
[2022-07-29 16:50] LABS: SARS-CoV-2 NAA Rapid Test Not Detected (NotDetected)
[2022-07-29] MEDS ORDERED: Lorazepam 2 MG/ML VIAL ONE (16:58)
[2022-07-29] MEDS ORDERED: Electrolyte Replacement Protocol 1 EACH IVPB PRN (18:24)
[2022-07-29] MEDS ORDERED: Dextrose 5% in Water 1,000 ML IV PRN (18:29)
[2022-07-29] MEDS ORDERED: Dextrose 50% Abboject 50 ML SYRINGE SLOW IVP PRN (18:29)
[2022-07-29] MEDS ORDERED: Guaifenesin DM 100-10/5 ML UDCUP PO PRN (19:06)
[2022-07-29 19:08] LABS: Lactic Acid 0.9 mmol/L (0.5-2.2)
[2022-07-29] MEDS ORDERED: Loratadine 10 MG TAB PO PRN (19:08)
[2022-07-29] MEDS ORDERED: FLU VACC QS2022-23(65YR UP)/PF 240 MCG/0.7 ML SYRINGE IM ONE (20:00)
[2022-07-29] MEDS ORDERED: Potassium Chloride 20 MEQ in Premix Bag 1 BAG IVPB SCH (20:30)
[2022-07-29] MEDS: Acetylcysteine 800 MG/4 ML VIAL PO SCH (21:10)
[2022-07-29] MEDS: Escitalopram Oxalate 20 mg Tablet PO SCH (21:10)
[2022-07-29] MEDS: Carvedilol 3.125 MG TAB PO SCH (21:10)
[2022-07-29] MEDS: Atorvastatin Calcium 40 MG TAB PO SCH (21:10)
[2022-07-29] MEDS: guaiFENesin ER 600 MG TAB PO SCH (21:10)
[2022-07-29] MEDS: Montelukast Sodium 10 mg Tablet PO SCH (21:10)
[2022-07-29] MEDS: Benzonatate 100 MG CAP PO SCH (21:10)
[2022-07-29] MEDS: guaiFENesin/Codeine Phosphate 100 mg/10 mg 5 ml UD Cup PO SCH (21:12)
[2022-07-29] MEDS: Lantus 1000 UNITS/10 ML VIAL SC SCH ×2 (21:12→21:31)
[2022-07-30] MEDS: methylPREDNISolone Sod Succ 40 MG VIAL IVP SCH ×5 (00:47→23:55)
[2022-07-30] MEDS: guaiFENesin/Codeine Phosphate 100 mg/10 mg 5 ml UD Cup PO SCH (02:55)
[2022-07-30] MEDS: Ondansetron PF 4 MG/2 ML Vial IVP PRN ×2 (02:55→07:39)
[2022-07-30 04:33] LABS: Anion Gap 15 mmol/L (10-20); BUN (Urea Nitrogen) 18 mg/dL (8.4-25.7); Calc. Creatinine Clearance 90 mL/min (70-130); Calcium 9.1 mg/dL (7.8-10.44); Carbon Dioxide 20 mmol/L (23-31); Chloride 108 mmol/L (98-107); Estimated GFR 88; Glucose 177 mg/dL (80-115); Potassium 4.4 mmol/L (3.5-5.1); Sodium 139 mmol/L (136-145)
[2022-07-30 04:35] LABS: #Monocytes 0.1 10x3/uL (0.0-1.1); %Eosinophils 0.2 % (0.0-6.0); %Lymphocytes 12.7 % (18.0-47.0); %Neutrophils 84.9 % (40.0-75.0); Hemoglobin 14.8 g/dL (13.5-17.5); Mean Corpuscular HGB CONC 32.6 g/dL (32.0-36.0); Mean Corpuscular Hemoglobin 25.4 pg (27.0-33.0); Mean Corpuscular Volume 77.9 fl (81.2-95.1); Mean Platelet Volume 11.4 fl (7.4-10.4); Platelet Count 185 10x3/uL (150-450); RBC Distribution Width 13.8 % (11.5-14.5); Red Blood Cell (RBC) Count 5.83 10x6/uL (4.32-5.72); White Blood Cell (WBC) Count 5.9 10x3/uL (3.5-10.5)
[2022-07-30] MEDS: Mometasone/Formoterol 200/5 60 PUFF INH SCH ×2 (07:00→19:25)
[2022-07-30] MEDS ORDERED: Guaifenesin DM 100-10/5 ML UDCUP PO PRN (08:00)
[2022-07-30] MEDS: ALPRAZolam 0.25 MG TAB PO PRN (08:05)
[2022-07-30] MEDS: Clopidogrel Bisulfate 75 MG TAB PO SCH (08:29)
[2022-07-30] MEDS: guaiFENesin ER 600 MG TAB PO SCH ×2 (08:29→20:51)
[2022-07-30] MEDS: Benzonatate 100 MG CAP PO SCH ×3 (08:29→20:51)
[2022-07-30] MEDS: Acetylcysteine 800 MG/4 ML VIAL PO SCH ×2 (08:29→20:52)
[2022-07-30] MEDS: Amlodipine 10 MG TAB PO SCH (08:29)
[2022-07-30] MEDS: Carvedilol 3.125 MG TAB PO SCH ×2 (08:30→20:51)
[2022-07-30] MEDS ORDERED: VILANTER IH SCH (09:00)
[2022-07-30] MEDS ORDERED: UMECLIDIN IH SCH (09:00)
[2022-07-30] MEDS ORDERED: [UNRECOGNIZED DRUG - OTHER] IH SCH (09:00)
[2022-07-30] MEDS ORDERED: FLUTICASONE IH SCH (09:00)
[2022-07-30 09:01] VITALS: TEMP 97.7
[2022-07-30] MEDS: HumaLOG 300 UNITS/3 ML VIAL SC PRN ×2 (11:53→20:59)
[2022-07-30] MEDS ORDERED: cefTRIAXone\\ROCEPHIN 2 GM in Sodium Chloride 0.9% 100 ML IVPB SCH (16:00)
[2022-07-30] MEDS: Atorvastatin Calcium 40 MG TAB PO SCH (20:51)
[2022-07-30] MEDS: Escitalopram Oxalate 20 mg Tablet PO SCH (20:51)
[2022-07-30] MEDS: Montelukast Sodium 10 mg Tablet PO SCH (20:51)
[2022-07-30] MEDS: Lantus 1000 UNITS/10 ML VIAL SC SCH (20:52)
[2022-07-30] MEDS: ALPRAZolam 0.25 MG TAB PO SCH ×2 (20:53→21:48)
[2022-07-31 03:40] LABS: #Monocytes 0.2 10x3/uL (0.0-1.1); #Neutrophils 9.7 10x3/uL (1.5-8.4); %Basophils 0.1 % (0.0-2.0); %Eosinophils 0.1 % (0.0-6.0); %Lymphocytes 6.6 % (18.0-47.0); %Monocytes 2.1 % (0.0-10.0); %Neutrophils 90.8 % (40.0-75.0); Mean Corpuscular HGB CONC 32.7 g/dL (32.0-36.0); Mean Corpuscular Hemoglobin 25.2 pg (27.0-33.0); Mean Corpuscular Volume 76.9 fl (81.2-95.1); Mean Platelet Volume 12.1 fl (7.4-10.4); Platelet Count 178 10x3/uL (150-450); RBC Distribution Width 13.5 % (11.5-14.5); Red Blood Cell (RBC) Count 5.16 10x6/uL (4.32-5.72); White Blood Cell (WBC) Count 10.7 10x3/uL (3.5-10.5)
[2022-07-31 03:51] LABS: Anion Gap 12 mmol/L (10-20); BUN (Urea Nitrogen) 17 mg/dL (8.4-25.7); Calc. Creatinine Clearance 77 mL/min (70-130); Calcium 8.8 mg/dL (7.8-10.44); Carbon Dioxide 24 mmol/L (23-31); Chloride 105 mmol/L (98-107); Estimated GFR 75; Glucose 263 mg/dL (80-115); Potassium 4.4 mmol/L (3.5-5.1); Sodium 137 mmol/L (136-145)
[2022-07-31] MEDS: methylPREDNISolone Sod Succ 40 MG VIAL IVP SCH ×3 (05:23→22:35)
[2022-07-31] MEDS: HumaLOG 300 UNITS/3 ML VIAL SC PRN ×4 (05:36→20:25)
[2022-07-31 05:43] VITALS: BMI 24.7
[2022-07-31] MEDS: guaiFENesin ER 600 MG TAB PO SCH ×2 (08:23→20:23)
[2022-07-31] MEDS: Amlodipine 10 MG TAB PO SCH (08:23)
[2022-07-31] MEDS: Benzonatate 100 MG CAP PO SCH ×3 (08:23→20:22)
[2022-07-31] MEDS: Clopidogrel Bisulfate 75 MG TAB PO SCH (08:23)
[2022-07-31] MEDS: Carvedilol 3.125 MG TAB PO SCH ×2 (08:24→20:22)
[2022-07-31] MEDS: Acetylcysteine 800 MG/4 ML VIAL PO SCH ×2 (08:26→20:23)
[2022-07-31] MEDS: Mometasone/Formoterol 200/5 60 PUFF INH SCH ×2 (08:31→19:15)
[2022-07-31] MEDS: Montelukast Sodium 10 mg Tablet PO SCH (20:22)
[2022-07-31] MEDS: Atorvastatin Calcium 40 MG TAB PO SCH (20:22)
[2022-07-31] MEDS: Escitalopram Oxalate 20 mg Tablet PO SCH (20:23)
[2022-07-31] MEDS: Lantus 1000 UNITS/10 ML VIAL SC SCH (20:25)
[2022-07-31] MEDS: ALPRAZolam 0.25 MG TAB PO PRN (22:36)
[2022-08-01] MEDS: methylPREDNISolone Sod Succ 40 MG VIAL IVP SCH (07:00)
[2022-08-01] MEDS: Acetylcysteine 800 MG/4 ML VIAL PO SCH (08:20)
[2022-08-01] MEDS: guaiFENesin ER 600 MG TAB PO SCH (08:21)
[2022-08-01] MEDS: Amlodipine 10 MG TAB PO SCH (08:21)
[2022-08-01] MEDS: Mometasone/Formoterol 200/5 60 PUFF INH SCH (08:25)
[2022-08-01] MEDS: Carvedilol 3.125 MG TAB PO SCH (08:29)
[2022-08-01] MEDS: Clopidogrel Bisulfate 75 MG TAB PO SCH (08:29)
[2022-08-01] MEDS: HumaLOG 300 UNITS/3 ML VIAL SC PRN ×2 (08:29→11:37)
[2022-08-01 08:30] VITALS: BP 155/79
== END 2022-08-01 11:55 | disposition home or self-care (01) | DRG 189 ==
LOC: CSHERS 15:35 → CSHIMCU 19:29
PROVIDERS: ADMIT Family Medicine; ATTEND Internal Medicine
PROC: 5A09357 Assistance with Respiratory Ventilation, Less than 24 Consecutive Hours, Continuous Positive Airway Pressure (ICD-10-PCS; principal; 2022-07-29)
DX: J96.01 Acute respiratory failure with hypoxia (principal); J45.41 Moderate persistent asthma with (acute) exacerbation; J44.1 Chronic obstructive pulmonary disease with (acute) exacerbation; E87.20 Acidosis, unspecified; R65.10 Systemic inflammatory response syndrome (SIRS) of non-infectious origin without acute organ dysfunction; I50.32 Chronic diastolic (congestive) heart failure; I13.0 Hypertensive heart and chronic kidney disease with heart failure and stage 1 through stage 4 chronic kidney disease, or unspecified chronic kidney disease; E78.5 Hyperlipidemia, unspecified; I25.10 Atherosclerotic heart disease of native coronary artery without angina pectoris; E11.22 Type 2 diabetes mellitus with diabetic chronic kidney disease; F41.9 Anxiety disorder, unspecified; Z20.822 Contact with and (suspected) exposure to COVID-19; K21.9 Gastro-esophageal reflux disease without esophagitis; E11.65 Type 2 diabetes mellitus with hyperglycemia; N18.2 Chronic kidney disease, stage 2 (mild); I25.2 Old myocardial infarction; Z95.5 Presence of coronary angioplasty implant and graft; Z98.52 Vasectomy status; Z87.891 Personal history of nicotine dependence; Z88.8 Allergy status to other drugs, medicaments and biological substances; Z79.4 Long term (current) use of insulin; Z79.899 Other long term (current) drug therapy
CPT/HCPCS: 36415; 36416; 71045; 80048; 80053; 82805; 83605; 83880; 84443; 84484; 85025; 93005; 94640; 94660; 94664; 94760; 96361; 96365; 96366; 96375; 96376; J0696; J1815; J1956; J2060; J2405; J2920; J3475; J3480; J7620

== ENCOUNTER 2022-10-24 22:47 | Inpatient (IN) | payer MEDICARE ==
[2022-10-24] MEDS ORDERED: Fentanyl 100 MCG/2 ML VIAL ONE (23:06)
[2022-10-24] MEDS ORDERED: Ketamine 50 MG/ML (10ML VIAL) ONE (23:06)
[2022-10-24] MEDS ORDERED: Propofol 1,000 MG/100 ML VIAL IV ONE (23:15)
[2022-10-24 23:23] LABS: #Basophils 0.1 10x3/uL (0.0-0.2); #Monocytes 1.4 10x3/uL (0.0-1.1); #Neutrophils 9.7 10x3/uL (1.5-8.4); %Basophils 0.6 % (0.0-2.0); %Eosinophils 0.1 % (0.0-6.0); %Lymphocytes 31.1 % (18.0-47.0); %Monocytes 8.5 % (0.0-10.0); %Neutrophils 59.5 % (40.0-75.0); Hemoglobin 14.1 g/dL (13.5-17.5); Mean Corpuscular HGB CONC 31.5 g/dL (32.0-36.0); Mean Corpuscular Hemoglobin 24.5 pg (27.0-33.0); Mean Corpuscular Volume 77.9 fl (81.2-95.1); Mean Platelet Volume 11.6 fl (7.4-10.4); Platelet Count 281 10x3/uL (150-450); RBC Distribution Width 14.1 % (11.5-14.5); Red Blood Cell (RBC) Count 5.75 10x6/uL (4.32-5.72); White Blood Cell (WBC) Count 16.3 10x3/uL (3.5-10.5)
[2022-10-24] MEDS ORDERED: levETIRAcetam 500 MG/5 ML VIAL ONE (23:38)
[2022-10-24] MEDS ORDERED: Magnesium 2 GM/50 ML BAG (IN WATER) ONE (23:38)
[2022-10-24] MEDS ORDERED: Rocuronium Bromide 10 MG/ML (10ML VIAL) ONE (23:45)
[2022-10-25 00:05] LABS: ALT (SGPT) 13 U/L (8-55); AST (SGOT) 24 U/L (5-34); Albumin 3.9 g/dL (3.4-4.8); Alkaline Phosphatase 133 U/L (40-110); Anion Gap 15 mmol/L (10-20); BUN (Urea Nitrogen) 14 mg/dL (8.4-25.7); Bilirubin, Total 0.8 mg/dL (0.2-1.2); Calc. Creatinine Clearance 0 mL/min (70-130); Calcium 8.3 mg/dL (7.8-10.44); Carbon Dioxide 23 mmol/L (23-31); Chloride 105 mmol/L (98-107); Estimated GFR 91; Globulin 3.3 g/dL (2.4-3.5); Glucose 261 mg/dL (80-115); Magnesium 1.8 mg/dL (1.6-2.6); Potassium 3.8 mmol/L (3.5-5.1); Protein, Total 7.2 g/dL (5.8-8.1); Sodium 139 mmol/L (136-145)
[2022-10-25] MEDS ORDERED: Ipratropium/Albuterol 3 ML NEB ONE (00:06)
[2022-10-25] MEDS ORDERED: methylPREDNISolone Sod Succ/PF 125 MG/2 ML VIAL ONE (00:12)
[2022-10-25 00:14] LABS: SARS-CoV-2 NAA Rapid Test Not Detected (NotDetected)
[2022-10-25 00:53] LABS: Actual Bicarbonate (HCO3a) 26.1 mEq/L (22-28); Base Excess (BEa) -1.8 mEq/L (-2.0 to +3.0); Calcium, Ionized (arterial) 1.12 mmol/L (1.12-1.30); Carboxyhemoglobin (COHb) 0.7 gm% (0.0-3.0); Critical Notified By: CP.PH; Hemoglobin (Hb) 15.1 g/dL (14.0-18.0); O2 Tension (PaO2), arterial 75.9 mmHg (> 80.0); Potassium - ABG Lab 3.8 mmol/L (3.70-5.30); Puncture Site LBA; RapidComm Collect By CP.PH; pH, Arterial 7.28 (7.35-7.45)
[2022-10-25] MEDS ORDERED: Dextrose 5% in Water 1,000 ML IV PRN (01:03)
[2022-10-25] MEDS ORDERED: Ondansetron PF 4 MG/2 ML Vial IVP PRN (01:03)
[2022-10-25] MEDS ORDERED: Dextrose 50% Abboject 50 ML SYRINGE SLOW IVP PRN (01:03)
[2022-10-25] MEDS ORDERED: Acetaminophen 325 MG TAB PER TUBE PRN (01:03)
[2022-10-25] MEDS ORDERED: HYDROcodone/Acetaminophen 10/325 mg Tablet PO PRN (01:06)
[2022-10-25] MEDS ORDERED: Propofol 1,000 MG/100 ML VIAL IV PRN (01:08)
[2022-10-25] MEDS ORDERED: Midazolam HCl 2 mg/2 ml Vial SLOW IVP PRN (01:09)
[2022-10-25] MEDS ORDERED: Ipratropium/Albuterol 3 ML NEB NEB PRN (01:10)
[2022-10-25 01:18] LABS: Bilirubin Neg (Negative); Blood, Urine 25 (Negative); Clarity Clear (Clear); Glucose, Urine (Dipstick) 250 mg/dL (Negative); Ketone, Urine 5 mg/dL (Negative); Leukocyte Negative (Negative); Nitrite Negative (Negative); Protein, Urine (Dipstick) 100 mg/dl (Neg-Trace); Specific Gravity, Urine 1.015 (1.005-1.030); Urobilinogen Normal mg/dL (Less than 2)
[2022-10-25 01:42] LABS: Bacteria/HPF None Seen HPF (None Seen); RBC/HPF 0-3 HPF (0-3); Squamous Epithelial None Seen HPF (0-3); WBC/HPF None Seen HPF (0-3)
[2022-10-25] MEDS ORDERED: Midazolam HCl 2 mg/2 ml Vial ONE ×2 (02:37→02:39)
[2022-10-25 03:55] VITALS: BMI 26.0
[2022-10-25] MEDS ORDERED: Propofol 1,000 MG/100 ML VIAL IV ONE (04:06)
[2022-10-25] MEDS: Cefepime 1 GM in Sodium Chloride 0.9% 100 ML IVPB SCH ×2 (04:36→16:30)
[2022-10-25 05:17] LABS: #Monocytes 0.1 10x3/uL (0.0-1.1); #Neutrophils 10.1 10x3/uL (1.5-8.4); %Basophils 0.1 % (0.0-2.0); %Lymphocytes 4.1 % (18.0-47.0); %Monocytes 1.3 % (0.0-10.0); %Neutrophils 94.3 % (40.0-75.0); Hemoglobin 12.6 g/dL (13.5-17.5); Mean Corpuscular HGB CONC 34.1 g/dL (32.0-36.0); Mean Corpuscular Volume 76.2 fl (81.2-95.1); Mean Platelet Volume 11.9 fl (7.4-10.4); Platelet Count 213 10x3/uL (150-450); Red Blood Cell (RBC) Count 4.84 10x6/uL (4.32-5.72); White Blood Cell (WBC) Count 10.7 10x3/uL (3.5-10.5)
[2022-10-25 05:22] LABS: Anion Gap 16 mmol/L (10-20); BUN (Urea Nitrogen) 15 mg/dL (8.4-25.7); Calc. Creatinine Clearance 71 mL/min (70-130); Calcium 8.3 mg/dL (7.8-10.44); Carbon Dioxide 22 mmol/L (23-31); Chloride 101 mmol/L (98-107); Estimated GFR 69; Glucose 224 mg/dL (80-115); Sodium 135 mmol/L (136-145)
[2022-10-25] MEDS ORDERED: FLU VACC QS2022-23(65YR UP)/PF 240 MCG/0.7 ML SYRINGE IM ONE (05:45)
[2022-10-25] MEDS ORDERED: methylPREDNISolone Sod Succ 40 MG VIAL IVP SCH (06:00)
[2022-10-25] MEDS: Ipratropium/Albuterol 3 ML NEB NEB SCH ×3 (06:40→19:15)
[2022-10-25] MEDS: Mometasone/Formoterol 200/5 60 PUFF INH SCH ×2 (07:35→19:23)
[2022-10-25] MEDS ORDERED: Lorazepam 2 MG/ML VIAL SLOW IVP PRN (08:00)
[2022-10-25] MEDS ORDERED: Propofol BOLUS 1,000 MG/100 ML VIAL IV PRN (08:00)
[2022-10-25] MEDS ORDERED: Fentanyl BOLUS 250 ML IVPB PRN (08:00)
[2022-10-25] MEDS ORDERED: DISCONTINUE PREVIOUS NARCOTIC PAIN MEDICATIONS AND BENZODIAZEPINES FS SCH (08:00)
[2022-10-25] MEDS ORDERED: Morphine 2 MG/ML VIAL SLOW IVP PRN (08:00)
[2022-10-25] MEDS: Lantus 1000 UNITS/10 ML VIAL SC SCH (08:40)
[2022-10-25] MEDS: Carvedilol 3.125 MG TAB PO SCH ×2 (08:59→16:05)
[2022-10-25] MEDS: Clopidogrel Bisulfate 75 MG TAB PO SCH (08:59)
[2022-10-25] MEDS ORDERED: Famotidine/PF 20 mg/2ml Vial SLOW IVP SCH (09:00)
[2022-10-25] MEDS: Amlodipine 10 MG TAB PO SCH (09:00)
[2022-10-25] MEDS: HumaLOG 300 UNITS/3 ML VIAL SC PRN ×5 (09:02→23:24)
[2022-10-25] MEDS: Propofol 1,000 MG/100 ML VIAL IV PRN ×2 (09:27→16:30)
[2022-10-25] MEDS ORDERED: Azithromycin 500 MG in Sodium Chloride 0.9% 250 ML 250 ML IVPB SCH (10:15)
[2022-10-25] MEDS: Azithromycin 500 MG in Sodium Chloride 0.9% 250 ML 250 ML IVPB SCH (10:29)
[2022-10-25] MEDS: Sodium Chloride 0.9% 1,000 ML IV SCH ×2 (10:30→23:23)
[2022-10-25] MEDS: FENTANYL 2,000MCG/100-0.9%NACL 100 ML IVPB SCH ×2 (10:40→22:00)
[2022-10-25] MEDS: methylPREDNISolone Sod Succ 40 MG VIAL IVP SCH ×2 (13:19→21:25)
[2022-10-25 14:00] LABS: Actual Bicarbonate (HCO3a) 23.1 mEq/L (22-28); Base Excess (BEa) -0.9 mEq/L (-2.0 to +3.0); CO2 Tension 36.2 mmHg (35.0-45.0); Calcium, Ionized (arterial) 1.14 mmol/L (1.12-1.30); Carboxyhemoglobin (COHb) 0.3 gm% (0.0-3.0); Hemoglobin (Hb) 12.8 g/dL (14.0-18.0); O2 Tension (PaO2), arterial 109.5 mmHg (> 80.0); Potassium - ABG Lab 3.8 mmol/L (3.70-5.30); Puncture Site RRA; pH, Arterial 7.42 (7.35-7.45)
[2022-10-25 16:48] LABS: Actual Bicarbonate (HCO3a) 25.6 mEq/L (22-28); CO2 Tension 41.2 mmHg (35.0-45.0); O2 Tension (PaO2), arterial 116.8 mmHg (> 80.0); pH, Arterial 7.41 (7.35-7.45)
[2022-10-25 16:49] LABS: Base Excess (BEa) 0.9 mEq/L (-2.0 to +3.0); Calcium, Ionized (arterial) 1.11 mmol/L (1.12-1.30); Carboxyhemoglobin (COHb) 0.3 gm% (0.0-3.0); Hemoglobin (Hb) 12.8 g/dL (14.0-18.0); Potassium - ABG Lab 3.9 mmol/L (3.70-5.30)
[2022-10-25 16:50] LABS: Puncture Site RRA
[2022-10-25] MEDS: Atorvastatin Calcium 40 MG TAB PO SCH (20:05)
[2022-10-25] MEDS: Montelukast Sodium 10 mg Tablet PO SCH (20:05)
[2022-10-26] MEDS: Propofol 1,000 MG/100 ML VIAL IV PRN ×4 (01:16→19:35)
[2022-10-26] MEDS: Ipratropium/Albuterol 3 ML NEB NEB SCH ×4 (01:44→18:45)
[2022-10-26] MEDS: HumaLOG 300 UNITS/3 ML VIAL SC PRN ×3 (03:25→23:53)
[2022-10-26 04:17] LABS: ALV-art Gradient 110.975 mmHg (0-20); Actual Bicarbonate (HCO3a) 23.7 mEq/L (22-28); Base Excess (BEa) 2.1 mEq/L (-2.0 to +3.0); CO2 Tension 28.3 mmHg (35.0-45.0); Calcium, Ionized (arterial) 1.14 mmol/L (1.12-1.30); Carboxyhemoglobin (COHb) 0.3 gm% (0.0-3.0); Hemoglobin (Hb) 12.7 g/dL (14.0-18.0); O2 Tension (PaO2), arterial 103.2 mmHg (> 80.0); Potassium - ABG Lab 3.4 mmol/L (3.70-5.30); Puncture Site LRA; pH, Arterial 7.54 (7.35-7.45)
[2022-10-26] MEDS: methylPREDNISolone Sod Succ 40 MG VIAL IVP SCH ×3 (05:09→21:01)
[2022-10-26] MEDS: Cefepime 1 GM in Sodium Chloride 0.9% 100 ML IVPB SCH ×2 (05:09→16:07)
[2022-10-26 05:55] LABS: Anion Gap 13 mmol/L (10-20); BUN (Urea Nitrogen) 18 mg/dL (8.4-25.7); Calc. Creatinine Clearance 95 mL/min (70-130); Calcium 8.7 mg/dL (7.8-10.44); Carbon Dioxide 25 mmol/L (23-31); Chloride 108 mmol/L (98-107); Estimated GFR 95; Glucose 142 mg/dL (80-115); Potassium 3.3 mmol/L (3.5-5.1); Sodium 143 mmol/L (136-145)
[2022-10-26 06:05] LABS: #Monocytes 0.6 10x3/uL (0.0-1.1); %Basophils 0.1 % (0.0-2.0); %Lymphocytes 8.3 % (18.0-47.0); %Monocytes 5.6 % (0.0-10.0); %Neutrophils 85.6 % (40.0-75.0); Hemoglobin 12.7 g/dL (13.5-17.5); Mean Corpuscular HGB CONC 32.8 g/dL (32.0-36.0); Mean Corpuscular Hemoglobin 24.5 pg (27.0-33.0); Mean Corpuscular Volume 74.7 fl (81.2-95.1); Mean Platelet Volume 12.2 fl (7.4-10.4); Platelet Count 217 10x3/uL (150-450); RBC Distribution Width 14.2 % (11.5-14.5); Red Blood Cell (RBC) Count 5.18 10x6/uL (4.32-5.72); White Blood Cell (WBC) Count 10.5 10x3/uL (3.5-10.5)
[2022-10-26] MEDS ORDERED: Potassium Chloride 20 MEQ TAB PO SCH (06:45)
[2022-10-26] MEDS: Mometasone/Formoterol 200/5 60 PUFF INH SCH ×2 (07:11→18:30)
[2022-10-26] MEDS: Lantus 1000 UNITS/10 ML VIAL SC SCH (08:26)
[2022-10-26] MEDS: Pantoprazole 40 MG VIAL IVP SCH (08:26)
[2022-10-26] MEDS: Clopidogrel Bisulfate 75 MG TAB PO SCH (08:26)
[2022-10-26] MEDS: Amlodipine 10 MG TAB PO SCH (08:26)
[2022-10-26] MEDS: Carvedilol 3.125 MG TAB PO SCH ×2 (08:26→16:07)
[2022-10-26] MEDS: Azithromycin 500 MG in Sodium Chloride 0.9% 250 ML 250 ML IVPB SCH (09:36)
[2022-10-26] MEDS: FENTANYL 2,000MCG/100-0.9%NACL 100 ML IVPB SCH ×2 (10:28→23:59)
[2022-10-26] MEDS: Sodium Chloride 0.9% 1,000 ML IV SCH (12:06)
[2022-10-26] MEDS: Atorvastatin Calcium 40 MG TAB PO SCH (20:37)
[2022-10-26] MEDS: Montelukast Sodium 10 mg Tablet PO SCH (20:37)
[2022-10-27] MEDS: Ipratropium/Albuterol 3 ML NEB NEB SCH ×4 (01:20→19:05)
[2022-10-27] MEDS: Sodium Chloride 0.9% 1,000 ML IV SCH ×2 (03:04→16:23)
[2022-10-27] MEDS: Propofol 1,000 MG/100 ML VIAL IV PRN ×2 (03:04→07:23)
[2022-10-27] MEDS: HumaLOG 300 UNITS/3 ML VIAL SC PRN ×2 (03:51→07:53)
[2022-10-27] MEDS: Cefepime 1 GM in Sodium Chloride 0.9% 100 ML IVPB SCH ×2 (04:17→16:45)
[2022-10-27] MEDS: methylPREDNISolone Sod Succ 40 MG VIAL IVP SCH ×2 (05:23→13:37)
[2022-10-27] MEDS: Mometasone/Formoterol 200/5 60 PUFF INH SCH ×2 (06:45→19:05)
[2022-10-27] MEDS: Pantoprazole 40 MG VIAL IVP SCH (07:50)
[2022-10-27] MEDS: Carvedilol 3.125 MG TAB PO SCH ×2 (07:51→16:22)
[2022-10-27] MEDS: Amlodipine 10 MG TAB PO SCH (07:51)
[2022-10-27] MEDS: Clopidogrel Bisulfate 75 MG TAB PO SCH (07:51)
[2022-10-27] MEDS: Lantus 1000 UNITS/10 ML VIAL SC SCH (07:52)
[2022-10-27 08:28] LABS: #Monocytes 0.5 10x3/uL (0.0-1.1); #Neutrophils 6.5 10x3/uL (1.5-8.4); %Lymphocytes 9.9 % (18.0-47.0); %Neutrophils 83.8 % (40.0-75.0); Hemoglobin 12.3 g/dL (13.5-17.5); Mean Corpuscular HGB CONC 32.6 g/dL (32.0-36.0); Mean Corpuscular Hemoglobin 24.9 pg (27.0-33.0); Mean Corpuscular Volume 76.3 fl (81.2-95.1); Platelet Count 198 10x3/uL (150-450); RBC Distribution Width 14.5 % (11.5-14.5); Red Blood Cell (RBC) Count 4.94 10x6/uL (4.32-5.72); White Blood Cell (WBC) Count 7.8 10x3/uL (3.5-10.5)
[2022-10-27 08:45] LABS: Anion Gap 15 mmol/L (10-20); BUN (Urea Nitrogen) 20 mg/dL (8.4-25.7); Calc. Creatinine Clearance 95 mL/min (70-130); Calcium 8.5 mg/dL (7.8-10.44); Carbon Dioxide 22 mmol/L (23-31); Chloride 110 mmol/L (98-107); Estimated GFR 95; Glucose 181 mg/dL (80-115); Potassium 4.3 mmol/L (3.5-5.1); Sodium 143 mmol/L (136-145)
[2022-10-27] MEDS: Azithromycin 500 MG in Sodium Chloride 0.9% 250 ML 250 ML IVPB SCH (09:35)
[2022-10-27] MEDS ORDERED: NIFEdipine XL 60 MG TAB PO SCH (17:30)
[2022-10-27] MEDS: Montelukast Sodium 10 mg Tablet PO SCH (19:51)
[2022-10-27] MEDS: Atorvastatin Calcium 40 MG TAB PO SCH (19:51)
[2022-10-27] MEDS: Cefdinir 300 MG CAP PO SCH (19:51)
[2022-10-28] MEDS: Ipratropium/Albuterol 3 ML NEB NEB SCH ×4 (01:30→19:25)
[2022-10-28 03:46] LABS: #Monocytes 0.8 10x3/uL (0.0-1.1); #Neutrophils 6.8 10x3/uL (1.5-8.4); %Basophils 0.2 % (0.0-2.0); %Eosinophils 0.1 % (0.0-6.0); %Lymphocytes 21.9 % (18.0-47.0); %Neutrophils 69.6 % (40.0-75.0); Hemoglobin 14.3 g/dL (13.5-17.5); Mean Corpuscular HGB CONC 32.5 g/dL (32.0-36.0); Mean Corpuscular Hemoglobin 24.5 pg (27.0-33.0); Mean Corpuscular Volume 75.5 fl (81.2-95.1); Mean Platelet Volume 11.7 fl (7.4-10.4); Platelet Count 230 10x3/uL (150-450); RBC Distribution Width 14.5 % (11.5-14.5); Red Blood Cell (RBC) Count 5.83 10x6/uL (4.32-5.72); White Blood Cell (WBC) Count 9.7 10x3/uL (3.5-10.5)
[2022-10-28 04:04] LABS: Anion Gap 16 mmol/L (10-20); BUN (Urea Nitrogen) 14 mg/dL (8.4-25.7); Calc. Creatinine Clearance 97 mL/min (70-130); Calcium 9.4 mg/dL (7.8-10.44); Carbon Dioxide 28 mmol/L (23-31); Chloride 100 mmol/L (98-107); Estimated GFR 96; Glucose 129 mg/dL (80-115); Potassium 3.4 mmol/L (3.5-5.1); Sodium 141 mmol/L (136-145)
[2022-10-28] MEDS: Mometasone/Formoterol 200/5 60 PUFF INH SCH ×2 (06:50→19:25)
[2022-10-28] MEDS: Clopidogrel Bisulfate 75 MG TAB PO SCH (08:10)
[2022-10-28] MEDS: predniSONE 20 MG TAB PO SCH (08:10)
[2022-10-28] MEDS: Carvedilol 6.25 MG TAB PO SCH ×2 (08:10→16:54)
[2022-10-28] MEDS: Cefdinir 300 MG CAP PO SCH ×2 (08:10→20:08)
[2022-10-28] MEDS: Lantus 1000 UNITS/10 ML VIAL SC SCH (08:12)
[2022-10-28] MEDS ORDERED: NIFEdipine XL 60 MG TAB PO SCH (09:00)
[2022-10-28] MEDS: Montelukast Sodium 10 mg Tablet PO SCH (20:07)
[2022-10-28] MEDS: Atorvastatin Calcium 40 MG TAB PO SCH (20:07)
[2022-10-28] MEDS ORDERED: Zolpidem Tartrate 5 MG TAB PO SCH (20:15)
[2022-10-29] MEDS: Ipratropium/Albuterol 3 ML NEB NEB SCH ×4 (01:05→19:24)
[2022-10-29 04:44] LABS: Anion Gap 13 mmol/L (10-20); BUN (Urea Nitrogen) 22 mg/dL (8.4-25.7); Calc. Creatinine Clearance 93 mL/min (70-130); Calcium 8.8 mg/dL (7.8-10.44); Carbon Dioxide 28 mmol/L (23-31); Chloride 101 mmol/L (98-107); Estimated GFR 95; Glucose 115 mg/dL (80-115); Potassium 2.8 mmol/L (3.5-5.1); Sodium 139 mmol/L (136-145)
[2022-10-29 04:49] LABS: #Monocytes 0.6 10x3/uL (0.0-1.1); %Basophils 0.2 % (0.0-2.0); %Eosinophils 0.5 % (0.0-6.0); %Lymphocytes 29.9 % (18.0-47.0); %Monocytes 7.8 % (0.0-10.0); %Neutrophils 61.5 % (40.0-75.0); Hemoglobin 13.3 g/dL (13.5-17.5); Mean Corpuscular HGB CONC 32.2 g/dL (32.0-36.0); Mean Corpuscular Hemoglobin 24.4 pg (27.0-33.0); Mean Corpuscular Volume 75.6 fl (81.2-95.1); Mean Platelet Volume 12.5 fl (7.4-10.4); Platelet Count 216 10x3/uL (150-450); RBC Distribution Width 13.9 % (11.5-14.5); Red Blood Cell (RBC) Count 5.46 10x6/uL (4.32-5.72); White Blood Cell (WBC) Count 8.2 10x3/uL (3.5-10.5)
[2022-10-29] MEDS: Mometasone/Formoterol 200/5 60 PUFF INH SCH ×2 (06:44→19:20)
[2022-10-29] MEDS: Cefdinir 300 MG CAP PO SCH ×2 (07:32→21:05)
[2022-10-29] MEDS: predniSONE 20 MG TAB PO SCH (07:32)
[2022-10-29] MEDS: Carvedilol 6.25 MG TAB PO SCH ×2 (07:32→16:58)
[2022-10-29] MEDS: Clopidogrel Bisulfate 75 MG TAB PO SCH (07:33)
[2022-10-29] MEDS: Lantus 1000 UNITS/10 ML VIAL SC SCH (07:33)
[2022-10-29] MEDS ORDERED: Potassium Chloride 20 MEQ TAB PO SCH ×2 (09:00→11:00)
[2022-10-29] MEDS ORDERED: NIFEdipine XL 30 MG TAB PO SCH (09:00)
[2022-10-29 16:11] LABS: ALV-art Gradient 121.225 mmHg (0-20); Actual Bicarbonate (HCO3a) 23.6 mEq/L (22-28); Base Excess (BEa) -5.8 mEq/L (-2.0 to +3.0); CO2 Tension 64.3 mmHg (35.0-45.0); Calcium, Ionized (arterial) 1.17 mmol/L (1.12-1.30); Carboxyhemoglobin (COHb) 0.1 gm% (0.0-3.0); Critical Notified Whom: CBN; Hemoglobin (Hb) 14.4 g/dL (14.0-18.0); O2 Tension (PaO2), arterial 154.9 mmHg (> 80.0); Potassium - ABG Lab 3.7 mmol/L (3.70-5.30); Puncture Site LBA; pH, Arterial 7.18 (7.35-7.45)
[2022-10-29] MEDS: HumaLOG 300 UNITS/3 ML VIAL SC PRN (17:21)
[2022-10-29] MEDS: Montelukast Sodium 10 mg Tablet PO SCH (21:04)
[2022-10-29] MEDS: Atorvastatin Calcium 40 MG TAB PO SCH (21:05)
[2022-10-29] MEDS ORDERED: Ziprasidone 20 MG VIAL ONE (22:31)
[2022-10-29] MEDS ORDERED: Sterile Water 0 ML ONE (22:32)
[2022-10-30] MEDS: Ipratropium/Albuterol 3 ML NEB NEB SCH ×2 (00:20→08:50)
[2022-10-30] MEDS: HumaLOG 300 UNITS/3 ML VIAL SC PRN (06:18)
[2022-10-30] MEDS ORDERED: predniSONE 20 MG TAB PO SCH (08:00)
[2022-10-30] MEDS: Carvedilol 6.25 MG TAB PO SCH (08:07)
[2022-10-30] MEDS: Clopidogrel Bisulfate 75 MG TAB PO SCH (08:08)
[2022-10-30] MEDS: Cefdinir 300 MG CAP PO SCH (08:16)
[2022-10-30] MEDS: Lantus 1000 UNITS/10 ML VIAL SC SCH (08:45)
[2022-10-30 08:53] VITALS: BP 191/114; TEMP 98.3
[2022-10-30] MEDS: Mometasone/Formoterol 200/5 60 PUFF INH SCH (09:00)
== END 2022-10-30 12:13 | disposition home health service (06) | DRG 208 ==
LOC: CSHERS 22:47 → CSHIMCU 10-25 03:51 → CSHICU 10-29 14:14
PROVIDERS: ADMIT Student in an Organized Health Care Education/Training Program; ATTEND Internal Medicine
PROC: 5A1945Z Respiratory Ventilation, 24-96 Consecutive Hours (ICD-10-PCS; principal; 2022-10-25)
PROC: 0BH17EZ Insertion of Endotracheal Airway into Trachea, Via Natural or Artificial Opening (ICD-10-PCS; 2022-10-25)
PROC: 0D9670Z Drainage of Stomach with Drainage Device, Via Natural or Artificial Opening (ICD-10-PCS; 2022-10-25)
DX: J96.21 Acute and chronic respiratory failure with hypoxia (principal); G93.41 Metabolic encephalopathy; J45.51 Severe persistent asthma with (acute) exacerbation; J44.1 Chronic obstructive pulmonary disease with (acute) exacerbation; R65.10 Systemic inflammatory response syndrome (SIRS) of non-infectious origin without acute organ dysfunction; M35.1 Other overlap syndromes; J96.22 Acute and chronic respiratory failure with hypercapnia; Z20.822 Contact with and (suspected) exposure to COVID-19; I10 Essential (primary) hypertension; E11.9 Type 2 diabetes mellitus without complications; I25.10 Atherosclerotic heart disease of native coronary artery without angina pectoris; F41.9 Anxiety disorder, unspecified; K21.9 Gastro-esophageal reflux disease without esophagitis; E78.2 Mixed hyperlipidemia; F32.A Depression, unspecified; Z88.6 Allergy status to analgesic agent; Z79.02 Long term (current) use of antithrombotics/antiplatelets; Z88.8 Allergy status to other drugs, medicaments and biological substances; Z79.4 Long term (current) use of insulin; Z79.891 Long term (current) use of opiate analgesic; Z79.85 Long-term (current) use of injectable non-insulin antidiabetic drugs; Z79.899 Other long term (current) drug therapy; Z87.891 Personal history of nicotine dependence; Z95.5 Presence of coronary angioplasty implant and graft; Z98.890 Other specified postprocedural states; Z98.52 Vasectomy status; Z83.3 Family history of diabetes mellitus; Z82.49 Family history of ischemic heart disease and other diseases of the circulatory system; I25.2 Old myocardial infarction; Z88.5 Allergy status to narcotic agent
CPT/HCPCS: 31500; 36415; 36416; 36600; 51702; 70450; 71045; 80048; 80053; 81003; 81015; 82140; 82805; 83605; 83735; 83880; 84484; 85025; 87040; 93005; 94002; 94003; 94150; 94640; 94664; 94760; 96365; 96366; 96368; 96375; 96376; C9113; J0456; J0692; J1650; J1815; J1953; J2250; J2405; J2704; J2920; J2930; J3010; J3475; J3490; J7050; J7512; J7620; S0028

== ENCOUNTER 2023-01-03 20:03 | Inpatient (IN) | payer MEDICARE ==
[2023-01-03] MEDS ORDERED: Ipratropium/Albuterol 3 ML NEB ONE ×2 (20:17→20:31)
[2023-01-03] MEDS ORDERED: methylPREDNISolone Sod Succ/PF 125 MG/2 ML VIAL ONE (20:21)
[2023-01-03] MEDS ORDERED: Ipratropium Bromide 2.5 ml Neb ONE (20:32)
[2023-01-03 20:35] LABS: #Basophils 0.1 10x3/uL (0.0-0.2); #Eosinphils 0.1 10x3/uL (0.0-0.5); #Monocytes 0.5 10x3/uL (0.0-1.1); #Neutrophils 3.6 10x3/uL (1.5-8.4); %Basophils 1.1 % (0.0-2.0); %Eosinophils 1.8 % (0.0-6.0); %Lymphocytes 32.2 % (18.0-47.0); %Monocytes 7.2 % (0.0-10.0); %Neutrophils 57.5 % (40.0-75.0); Hemoglobin 16.2 g/dL (13.5-17.5); Mean Corpuscular HGB CONC 33.3 g/dL (32.0-36.0); Mean Corpuscular Hemoglobin 25.3 pg (27.0-33.0); Mean Corpuscular Volume 76.1 fl (81.2-95.1); Mean Platelet Volume 11.1 fl (7.4-10.4); Platelet Count 261 10x3/uL (150-450); RBC Distribution Width 13.8 % (11.5-14.5); White Blood Cell (WBC) Count 6.2 10x3/uL (3.5-10.5)
[2023-01-03 20:53] LABS: ALT (SGPT) 11 U/L (8-55); AST (SGOT) 23 U/L (5-34); Acetaminophen Less than 10.0 mcg/mL (10.0-30.0); Albumin 4.4 g/dL (3.4-4.8); Alcohol Less than 10 mg/dL (Less than 10); Alkaline Phosphatase 136 U/L (40-110); Anion Gap 18 mmol/L (10-20); BUN (Urea Nitrogen) 14 mg/dL (8.4-25.7); Bilirubin, Total 1.7 mg/dL (0.2-1.2); CK (CPK) 125 U/L (30-200); Calc. Creatinine Clearance 0 mL/min (70-130); Calcium 9.8 mg/dL (7.8-10.44); Carbon Dioxide 24 mmol/L (23-31); Chloride 101 mmol/L (98-107); Estimated GFR 66; Globulin 3.7 g/dL (2.4-3.5); Glucose 178 mg/dL (80-115); Magnesium 1.9 mg/dL (1.6-2.6); Potassium 3.3 mmol/L (3.5-5.1); Protein, Total 8.1 g/dL (5.8-8.1); Salicylate Less than 8.0 mg/dL (15.0-30.0); Sodium 140 mmol/L (136-145)
[2023-01-03] MEDS ORDERED: Acetaminophen 500 MG TAB ONE (21:13)
[2023-01-03] MEDS ORDERED: Ketorolac Tromethamine 30 MG/ML VIAL ONE (21:13)
[2023-01-03] MEDS ORDERED: Lorazepam 2 MG/ML VIAL ONE (22:00)
[2023-01-03] MEDS ORDERED: Magnesium 2 GM/50 ML BAG (IN WATER) ONE (22:32)
[2023-01-03] MEDS ORDERED: Senokot S 8.6-50 MG TAB PO PRN (22:37)
[2023-01-03] MEDS ORDERED: Dextrose 5% in Water 1,000 ML IV PRN (22:37)
[2023-01-03] MEDS ORDERED: Dextrose 50% Abboject 50 ML SYRINGE SLOW IVP PRN (22:37)
[2023-01-03] MEDS ORDERED: Calcium Carbonate 500 MG ChewTAB PO PRN (22:37)
[2023-01-03] MEDS ORDERED: Potassium Chloride 20 MEQ TAB PO SCH (23:00)
[2023-01-03] MEDS ORDERED: Cefdinir 300 MG CAP PO SCH (23:15)
[2023-01-03 23:19] LABS: Actual Bicarbonate (HCO3v) 28.8 mEq/L (22-28); Base Excess 3.9 mEq/L (-2 - +2); Calcium, Ionized (venous) 1.14 mmol/L (1.16-1.32); Chloride (VBG) 101 mmol/L (98-106); Hematocrit-VBG 47 % (42.0-52.0); Hemoglobin (Hb) 15.9 g/dL (12.6-17.4); Potassium (VBG) 3.39 mmol/L (3.70-5.30); Puncture Site Other Site; RapidComm Collect By LAB.YY; Sodium 139.9 mmol/L (133-146); pH (venous) 7.431 (7.32-7.43)
[2023-01-03] MEDS ORDERED: Potassium Chloride 20 MEQ TAB ONE (23:20)
[2023-01-04] MEDS: HumaLOG 300 UNITS/3 ML VIAL SC PRN ×3 (00:17→16:10)
[2023-01-04] MEDS ORDERED: Insulin Regular 300 UNITS/3 ML VIAL ONE (00:18)
[2023-01-04] MEDS ORDERED: methylPREDNISolone Sod Succ 40 MG VIAL ONE ×2 (03:53→11:58)
[2023-01-04] MEDS: methylPREDNISolone Sod Succ 40 MG VIAL IVP SCH ×3 (03:55→20:12)
[2023-01-04] MEDS: Ipratropium/Albuterol 3 ML NEB NEB SCH ×6 (03:56→23:50)
[2023-01-04 04:12] LABS: Anion Gap 16 mmol/L (10-20); BUN (Urea Nitrogen) 19 mg/dL (8.4-25.7); Calc. Creatinine Clearance 0 mL/min (70-130); Calcium 9.6 mg/dL (7.8-10.44); Carbon Dioxide 27 mmol/L (23-31); Chloride 100 mmol/L (98-107); Estimated GFR 61; Glucose 207 mg/dL (80-115); Potassium 3.7 mmol/L (3.5-5.1); Sodium 139 mmol/L (136-145)
[2023-01-04] MEDS ORDERED: Ipratropium/Albuterol 3 ML NEB ONE ×4 (04:53→12:26)
[2023-01-04] MEDS: Ipratropium/Albuterol 3 ML NEB NEB PRN ×4 (04:59→21:44)
[2023-01-04] MEDS ORDERED: Lorazepam 2 MG/ML VIAL ONE (06:14)
[2023-01-04] MEDS ORDERED: HYDROcodone/Acetaminophen 10/325 mg Tablet ONE ×2 (06:19→13:58)
[2023-01-04] MEDS: HYDROcodone/Acetaminophen 10/325 mg Tablet PO PRN ×2 (06:20→13:55)
[2023-01-04] MEDS: Lorazepam 0.5 MG TAB PO PRN ×3 (06:20→17:43)
[2023-01-04] MEDS: Mometasone/Formoterol 200/5 60 PUFF INH SCH ×2 (06:50→19:09)
[2023-01-04] MEDS ORDERED: Mometasone/Formoterol 200/5 60 PUFF INH ONE (07:25)
[2023-01-04] MEDS ORDERED: Clopidogrel Bisulfate 75 MG TAB ONE (07:35)
[2023-01-04] MEDS ORDERED: Amlodipine 5 MG TAB ONE (07:36)
[2023-01-04] MEDS ORDERED: Benzonatate 100 MG CAP ONE (07:36)
[2023-01-04] MEDS ORDERED: Carvedilol 3.125 MG TAB ONE (07:38)
[2023-01-04] MEDS: Amlodipine 10 MG TAB PO SCH (08:30)
[2023-01-04] MEDS: Cefdinir 300 MG CAP PO SCH ×2 (08:30→20:11)
[2023-01-04] MEDS: Fluticasone Propionate Nasal Spray 16 gm Bottle NASAL SCH ×2 (08:30→20:17)
[2023-01-04] MEDS: Carvedilol 3.125 MG TAB PO SCH ×2 (08:30→18:24)
[2023-01-04] MEDS: Clopidogrel Bisulfate 75 MG TAB PO SCH (08:30)
[2023-01-04] MEDS: Benzonatate 100 MG CAP PO SCH ×3 (08:30→20:06)
[2023-01-04] MEDS: guaiFENesin ER 600 MG TAB PO SCH ×2 (08:31→20:03)
[2023-01-04] MEDS: Lantus 1000 UNITS/10 ML VIAL SC SCH (08:39)
[2023-01-04] MEDS ORDERED: hydrOXYzine 25 MG TAB PO PRN (09:07)
[2023-01-04] MEDS ORDERED: Lorazepam 0.5 MG TAB ONE (11:57)
[2023-01-04 12:50] LABS: Actual Bicarbonate (HCO3v) 19.4 mEq/L (22-28); Base Excess -5.4 mEq/L (-2 - +2); Calcium, Ionized (venous) 1.15 mmol/L (1.16-1.32); Chloride (VBG) 99 mmol/L (98-106); Hematocrit-VBG 46 % (42.0-52.0); Hemoglobin (Hb) 15.5 g/dL (12.6-17.4); Potassium (VBG) 3.89 mmol/L (3.70-5.30); Puncture Site Other Site; RapidComm Collect By CBN; Sodium 137.3 mmol/L (133-146); pH (venous) 7.349 (7.32-7.43)
[2023-01-04] MEDS: Ondansetron PF 4 MG/2 ML Vial IVP PRN (18:06)
[2023-01-04] MEDS: Montelukast Sodium 10 mg Tablet PO SCH (20:03)
[2023-01-04] MEDS: Atorvastatin Calcium 40 MG TAB PO SCH (20:03)
[2023-01-04] MEDS: Escitalopram Oxalate 10 mg Tablet PO SCH (20:03)
[2023-01-05] MEDS: HumaLOG 300 UNITS/3 ML VIAL SC PRN ×6 (00:32→23:47)
[2023-01-05] MEDS: Ipratropium/Albuterol 3 ML NEB NEB SCH ×6 (03:07→23:10)
[2023-01-05] MEDS: methylPREDNISolone Sod Succ 40 MG VIAL IVP SCH ×3 (04:52→20:03)
[2023-01-05] MEDS: Ondansetron PF 4 MG/2 ML Vial IVP PRN (07:46)
[2023-01-05] MEDS: HYDROcodone/Acetaminophen 10/325 mg Tablet PO PRN ×3 (08:00→20:57)
[2023-01-05] MEDS: Lorazepam 0.5 MG TAB PO PRN ×2 (08:04→20:58)
[2023-01-05] MEDS: guaiFENesin ER 600 MG TAB PO SCH ×2 (08:04→20:35)
[2023-01-05] MEDS: Carvedilol 3.125 MG TAB PO SCH ×2 (08:04→16:20)
[2023-01-05] MEDS: Benzonatate 100 MG CAP PO SCH ×3 (08:05→20:35)
[2023-01-05] MEDS: Clopidogrel Bisulfate 75 MG TAB PO SCH (08:05)
[2023-01-05] MEDS: Amlodipine 10 MG TAB PO SCH (08:06)
[2023-01-05] MEDS: Mometasone/Formoterol 200/5 60 PUFF INH SCH ×2 (08:11→19:15)
[2023-01-05 08:33] LABS: Anion Gap 14 mmol/L (10-20); BUN (Urea Nitrogen) 21 mg/dL (8.4-25.7); Calc. Creatinine Clearance 0 mL/min (70-130); Calcium 9.3 mg/dL (7.8-10.44); Carbon Dioxide 28 mmol/L (23-31); Chloride 101 mmol/L (98-107); Estimated GFR 63; Glucose 235 mg/dL (80-115); Potassium 4.3 mmol/L (3.5-5.1); Sodium 139 mmol/L (136-145)
[2023-01-05] MEDS: Lantus 1000 UNITS/10 ML VIAL SC SCH (08:55)
[2023-01-05] MEDS: Guaifenesin DM 100-10/5 ML UDCUP PO PRN ×2 (09:07→14:43)
[2023-01-05] MEDS: Cefdinir 300 MG CAP PO SCH ×2 (09:14→20:36)
[2023-01-05] MEDS: Fluticasone Propionate Nasal Spray 16 gm Bottle NASAL SCH ×2 (11:17→20:36)
[2023-01-05] MEDS: Escitalopram Oxalate 10 mg Tablet PO SCH (20:35)
[2023-01-05] MEDS: Atorvastatin Calcium 40 MG TAB PO SCH (20:35)
[2023-01-05] MEDS: Montelukast Sodium 10 mg Tablet PO SCH (20:36)
[2023-01-06] MEDS: Ipratropium/Albuterol 3 ML NEB NEB SCH ×6 (02:30→23:15)
[2023-01-06 04:06] LABS: Hemoglobin 13.5 g/dL (13.5-17.5); MDiff Complete? YES; Mean Corpuscular HGB CONC 32.7 g/dL (32.0-36.0); Mean Corpuscular Hemoglobin 25.1 pg (27.0-33.0); Mean Corpuscular Volume 76.8 fl (81.2-95.1); Platelet Count 228 10x3/uL (150-450); RBC Distribution Width 13.7 % (11.5-14.5); Red Blood Cell (RBC) Count 5.38 10x6/uL (4.32-5.72); White Blood Cell (WBC) Count 16.5 10x3/uL (3.5-10.5)
[2023-01-06 04:23] LABS: Anion Gap 15 mmol/L (10-20); BUN (Urea Nitrogen) 22 mg/dL (8.4-25.7); Calc. Creatinine Clearance 74 mL/min (70-130); Carbon Dioxide 27 mmol/L (23-31); Chloride 101 mmol/L (98-107); Estimated GFR 69; Glucose 238 mg/dL (80-115); Potassium 4.5 mmol/L (3.5-5.1); Sodium 138 mmol/L (136-145)
[2023-01-06] MEDS: methylPREDNISolone Sod Succ 40 MG VIAL IVP SCH ×3 (04:33→21:01)
[2023-01-06 04:45] LABS: Lymphocytes 6 % (21-51); Monocytes 5 % (0-10); Neutrophil 89 % (42-75)
[2023-01-06 04:46] LABS: Microcytosis SLIGHT = 6-15 cells (100X) (0-5/hpf)
[2023-01-06 04:47] LABS: Ovalocytes SLIGHT = 2-5 cells (100X) (0-1/hpf); Platelet Morphology Comment Appears Adequate
[2023-01-06] MEDS: HYDROcodone/Acetaminophen 10/325 mg Tablet PO PRN ×3 (05:40→21:05)
[2023-01-06] MEDS: HumaLOG 300 UNITS/3 ML VIAL SC PRN ×3 (05:40→16:40)
[2023-01-06] MEDS: Lorazepam 0.5 MG TAB PO PRN (05:40)
[2023-01-06] MEDS: Mometasone/Formoterol 200/5 60 PUFF INH SCH ×2 (06:30→21:10)
[2023-01-06 08:12] LABS: ALT (SGPT) 10 U/L (8-55); AST (SGOT) 16 U/L (5-34); Albumin 3.7 g/dL (3.4-4.8); Alkaline Phosphatase 109 U/L (40-110); Bilirubin, Direct 0.2 mg/dL (0.1-0.3); Bilirubin, Total 0.5 mg/dL (0.2-1.2); Lipase 12 U/L (8-78); Magnesium 2.2 mg/dL (1.6-2.6); Phosphorus 3.7 mg/dL (2.3-4.7); Protein, Total 6.7 g/dL (5.8-8.1)
[2023-01-06] MEDS: Cefdinir 300 MG CAP PO SCH ×2 (08:24→21:01)
[2023-01-06] MEDS: guaiFENesin ER 600 MG TAB PO SCH ×2 (08:24→21:00)
[2023-01-06] MEDS: Benzonatate 100 MG CAP PO SCH ×3 (08:24→21:01)
[2023-01-06] MEDS: Amlodipine 10 MG TAB PO SCH (08:24)
[2023-01-06] MEDS: Clopidogrel Bisulfate 75 MG TAB PO SCH (08:25)
[2023-01-06] MEDS: Carvedilol 3.125 MG TAB PO SCH ×2 (08:25→16:15)
[2023-01-06] MEDS: Lantus 1000 UNITS/10 ML VIAL SC SCH (08:26)
[2023-01-06] MEDS: Fluticasone Propionate Nasal Spray 16 gm Bottle NASAL SCH ×2 (08:30→21:06)
[2023-01-06] MEDS ORDERED: Non-Formulary Medication 1 EACH (Tadalafil [Tadalafil] 20 MG Tablet) PO PRN (15:49)
[2023-01-06] MEDS: Escitalopram Oxalate 10 mg Tablet PO SCH (21:00)
[2023-01-06] MEDS: Atorvastatin Calcium 40 MG TAB PO SCH (21:01)
[2023-01-06] MEDS: Montelukast Sodium 10 mg Tablet PO SCH (21:01)
[2023-01-07] MEDS: HumaLOG 300 UNITS/3 ML VIAL SC PRN ×3 (00:36→11:49)
[2023-01-07] MEDS: Ipratropium/Albuterol 3 ML NEB NEB SCH ×4 (02:00→14:07)
[2023-01-07 03:47] LABS: Hemoglobin 13.2 g/dL (13.5-17.5); MDiff Complete? YES; Mean Corpuscular Hemoglobin 25.1 pg (27.0-33.0); Mean Platelet Volume 11.9 fl (7.4-10.4); Platelet Count 207 10x3/uL (150-450); RBC Distribution Width 13.3 % (11.5-14.5); Red Blood Cell (RBC) Count 5.26 10x6/uL (4.32-5.72)
[2023-01-07 04:08] LABS: Lymphocytes 2 % (21-51); Monocytes 2 % (0-10); Neutrophil 96 % (42-75); Platelet Morphology Comment Appears Adequate
[2023-01-07] MEDS: methylPREDNISolone Sod Succ 40 MG VIAL IVP SCH (04:08)
[2023-01-07 04:18] LABS: ALT (SGPT) 57 U/L (8-55); AST (SGOT) 41 U/L (5-34); Albumin 3.5 g/dL (3.4-4.8); Alkaline Phosphatase 125 U/L (40-110); Anion Gap 11 mmol/L (10-20); BUN (Urea Nitrogen) 18 mg/dL (8.4-25.7); Bilirubin, Total 0.4 mg/dL (0.2-1.2); Calc. Creatinine Clearance 84 mL/min (70-130); Calcium 8.8 mg/dL (7.8-10.44); Carbon Dioxide 30 mmol/L (23-31); Chloride 100 mmol/L (98-107); Estimated GFR 80; Globulin 2.8 g/dL (2.4-3.5); Glucose 290 mg/dL (80-115); Magnesium 2.1 mg/dL (1.6-2.6); Phosphorus 2.5 mg/dL (2.3-4.7); Potassium 4.3 mmol/L (3.5-5.1); Protein, Total 6.3 g/dL (5.8-8.1); Sodium 137 mmol/L (136-145)
[2023-01-07] MEDS: HYDROcodone/Acetaminophen 10/325 mg Tablet PO PRN (04:21)
[2023-01-07 04:51] VITALS: TEMP 97.7
[2023-01-07] MEDS: Mometasone/Formoterol 200/5 60 PUFF INH SCH (07:59)
[2023-01-07] MEDS: Amlodipine 10 MG TAB PO SCH (08:19)
[2023-01-07] MEDS: guaiFENesin ER 600 MG TAB PO SCH (08:20)
[2023-01-07] MEDS: Benzonatate 100 MG CAP PO SCH (08:20)
[2023-01-07] MEDS: Carvedilol 3.125 MG TAB PO SCH (08:20)
[2023-01-07] MEDS: Clopidogrel Bisulfate 75 MG TAB PO SCH (08:20)
[2023-01-07] MEDS: Lantus 1000 UNITS/10 ML VIAL SC SCH (08:21)
[2023-01-07] MEDS: Cefdinir 300 MG CAP PO SCH (08:22)
[2023-01-07] MEDS: Fluticasone Propionate Nasal Spray 16 gm Bottle NASAL SCH (08:25)
[2023-01-07] MEDS ORDERED: Lisinopril 10 MG TAB PO SCH (11:14)
[2023-01-07 11:22] VITALS: BP 171/93
[2023-01-07] MEDS ORDERED: methylPREDNISolone Sod Succ 40 MG VIAL IVP SCH (14:00)
[2023-01-07] MEDS ORDERED: predniSONE 20 MG TAB PO SCH (18:00)
[2023-01-08] MEDS ORDERED: Lisinopril 5 MG TAB PO SCH (09:00)
[2023-01-08] MEDS ORDERED: Lisinopril 10 MG TAB PO SCH (09:00)
[2023-01-08] MEDS ORDERED: predniSONE 20 MG TAB PO SCH (09:00)
== END 2023-01-07 13:58 | disposition home or self-care (01) | DRG 189 ==
LOC: CSHERS 20:03 → CSHERHOLD 22:50 → CSHICU 01-04 14:36
PROVIDERS: ADMIT Student in an Organized Health Care Education/Training Program; ATTEND Internal Medicine
PROC: 5A0945A Assistance with Respiratory Ventilation, 24-96 Consecutive Hours, High Flow/Velocity Cannula (ICD-10-PCS; principal; 2023-01-04)
DX: J96.21 Acute and chronic respiratory failure with hypoxia (principal); J44.1 Chronic obstructive pulmonary disease with (acute) exacerbation; R65.10 Systemic inflammatory response syndrome (SIRS) of non-infectious origin without acute organ dysfunction; I10 Essential (primary) hypertension; E11.9 Type 2 diabetes mellitus without complications; F41.9 Anxiety disorder, unspecified; F32.A Depression, unspecified; E78.5 Hyperlipidemia, unspecified; K21.9 Gastro-esophageal reflux disease without esophagitis; E87.6 Hypokalemia; I25.10 Atherosclerotic heart disease of native coronary artery without angina pectoris; Z95.5 Presence of coronary angioplasty implant and graft; I25.2 Old myocardial infarction; Z98.52 Vasectomy status; Z98.890 Other specified postprocedural states; Z88.5 Allergy status to narcotic agent; Z88.8 Allergy status to other drugs, medicaments and biological substances; Z79.4 Long term (current) use of insulin; Z79.899 Other long term (current) drug therapy; Z87.891 Personal history of nicotine dependence
CPT/HCPCS: 36415; 36416; 71045; 71250; 80048; 80053; 80076; 80307; 82550; 82805; 83605; 83690; 83735; 83880; 84100; 84145; 84443; 84484; 85025; 93005; 94640; 94644; 94664; 94667; 94668; 94760; 94762; J1650; J1815; J1885; J2060; J2405; J2920; J2930; J3475; J7611; J7620

== ENCOUNTER 2023-04-09 11:02 | Inpatient (IN) | payer MEDICARE ==
[2023-04-09] MEDS ORDERED: Ipratropium/Albuterol 3 ML NEB ONE ×2 (11:09→23:17)
[2023-04-09 11:26] LABS: #Basophils 0.1 10x3/uL (0.0-0.2); #Monocytes 0.5 10x3/uL (0.0-1.1); #Neutrophils 3.3 10x3/uL (1.5-8.4); %Basophils 1.1 % (0.0-2.0); %Eosinophils 0.5 % (0.0-6.0); %Lymphocytes 28.4 % (18.0-47.0); %Monocytes 9.1 % (0.0-10.0); %Neutrophils 60.7 % (40.0-75.0); Hematocrit 42.9 % (38.8-50.0); Hemoglobin 14.2 g/dL (13.5-17.5); Mean Corpuscular HGB CONC 33.1 g/dL (32.0-36.0); Mean Corpuscular Hemoglobin 25.8 pg (27.0-33.0); Mean Corpuscular Volume 77.9 fl (81.2-95.1); Mean Platelet Volume 11.4 fl (7.4-10.4); Platelet Count 265 10x3/uL (150-450); RBC Distribution Width 13.6 % (11.5-14.5); Red Blood Cell (RBC) Count 5.51 10x6/uL (4.32-5.72); White Blood Cell (WBC) Count 5.5 10x3/uL (3.5-10.5)
[2023-04-09 11:34] LABS: Actual Bicarbonate (HCO3a) 26.6 mEq/L (22-28); Base Excess (BEa) 2.6 mEq/L (-2.0 to +3.0); CO2 Tension 38.9 mmHg (35.0-45.0); Calcium, Ionized (arterial) 1.14 mmol/L (1.12-1.30); Carboxyhemoglobin (COHb) 0.3 gm% (0.0-3.0); Hematocrit-ABG 42 % (42.0-52.0); Hemoglobin (Hb) 14.2 g/dL (14.0-18.0); O2 Tension (PaO2), arterial 107.8 mmHg (> 80.0); Potassium - ABG Lab 3.23 mmol/L (3.70-5.30); Puncture Site LRA; pH, Arterial 7.453 (7.35-7.45)
[2023-04-09 11:36] LABS: ALV-art Gradient 43.215 mmHg (0-20)
[2023-04-09 11:43] LABS: ALT (SGPT) 17 U/L (8-55); AST (SGOT) 28 U/L (5-34); Albumin 4.4 g/dL (3.4-4.8); Alkaline Phosphatase 125 U/L (40-110); Anion Gap 16 mmol/L (10-20); BUN (Urea Nitrogen) 14 mg/dL (8.4-25.7); Bilirubin, Total 1.2 mg/dL (0.2-1.2); Calc. Creatinine Clearance 0 mL/min (70-130); Calcium 9.2 mg/dL (7.8-10.44); Carbon Dioxide 28 mmol/L (23-31); Chloride 102 mmol/L (98-107); Estimated GFR 82; Globulin 2.9 g/dL (2.4-3.5); Glucose 161 mg/dL (80-115); Potassium 3.4 mmol/L (3.5-5.1); Protein, Total 7.3 g/dL (5.8-8.1); Sodium 143 mmol/L (136-145)
[2023-04-09 15:21] LABS: SARS-CoV-2 NAA Rapid Test Not Detected (NotDetected)
[2023-04-09] MEDS ORDERED: Calcium Carbonate 500 MG ChewTAB PO PRN (15:24)
[2023-04-09] MEDS ORDERED: Senokot S 8.6-50 MG TAB PO PRN (15:24)
[2023-04-09] MEDS ORDERED: Ipratropium/Albuterol 3 ML NEB NEB PRN (15:28)
[2023-04-09] MEDS ORDERED: ALPRAZolam 0.25 MG TAB PO PRN (15:30)
[2023-04-09] MEDS ORDERED: Electrolyte Replacement Protocol FS PRN (15:45)
[2023-04-09] MEDS ORDERED: Electrolyte Replacement Protocol 1 EACH FS SCH (15:45)
[2023-04-09] MEDS ORDERED: cloNIDine 0.1 MG TAB PO PRN (15:45)
[2023-04-09] MEDS ORDERED: methylPREDNISolone Sod Succ/PF 125 MG/2 ML VIAL ONE (15:47)
[2023-04-09] MEDS ORDERED: Lorazepam 2 MG/ML VIAL ONE (16:32)
[2023-04-09] MEDS ORDERED: Montelukast Sodium 10 mg Tablet PO SCH (21:00)
[2023-04-09] MEDS ORDERED: Loratadine 10 MG TAB PO SCH (21:00)
[2023-04-09] MEDS ORDERED: Mometasone/Formoterol 200/5 60 PUFF INH SCH (21:15)
[2023-04-09] MEDS ORDERED: cefTRIAXone\\ROCEPHIN 1 GM in Sodium Chloride 0.9% 100 ML IVPB SCH (21:30)
[2023-04-09] MEDS ORDERED: Magnesium 2 GM/50 ML(in water) 2 GM in Premix Bag 1 BAG IVPB SCH ×2 (21:30→22:00)
[2023-04-09] MEDS: Ipratropium/Albuterol 3 ML NEB NEB SCH ×2 (22:45→23:25)
[2023-04-09] MEDS: methylPREDNISolone Sod Succ 40 MG VIAL IVP SCH (23:12)
[2023-04-09] MEDS ORDERED: Mometasone/Formoterol 200/5 60 PUFF INH ONE (23:15)
[2023-04-09] MEDS ORDERED: Magnesium 2 GM/50 ML BAG (IN WATER) ONE (23:17)
[2023-04-10] MEDS ORDERED: Doxycycline 100 MG CAP ONE (00:04)
[2023-04-10] MEDS ORDERED: methylPREDNISolone Sod Succ 40 MG VIAL ONE ×2 (00:04→05:59)
[2023-04-10] MEDS ORDERED: cefTRIAXone (ROCEPHIN) 1 GM VIAL ONE (00:05)
[2023-04-10] MEDS ORDERED: Famotidine 20 MG TAB ONE (00:06)
[2023-04-10] MEDS: Doxycycline 100 MG CAP PO SCH ×2 (00:13→09:49)
[2023-04-10] MEDS: Famotidine 20 MG TAB PO SCH ×2 (00:13→08:48)
[2023-04-10] MEDS: methylPREDNISolone Sod Succ 40 MG VIAL IVP SCH ×3 (00:14→12:33)
[2023-04-10] MEDS: Ipratropium/Albuterol 3 ML NEB NEB SCH ×5 (03:40→20:53)
[2023-04-10 03:45] LABS: #Neutrophils 3.7 10x3/uL (1.5-8.4); %Basophils 0.2 % (0.0-2.0); %Lymphocytes 11.1 % (18.0-47.0); %Monocytes 0.5 % (0.0-10.0); Hematocrit 40.2 % (38.8-50.0); Hemoglobin 13.1 g/dL (13.5-17.5); Mean Corpuscular HGB CONC 32.6 g/dL (32.0-36.0); Mean Corpuscular Hemoglobin 25.4 pg (27.0-33.0); Mean Corpuscular Volume 77.9 fl (81.2-95.1); Mean Platelet Volume 11.6 fl (7.4-10.4); Platelet Count 255 10x3/uL (150-450); RBC Distribution Width 13.5 % (11.5-14.5); Red Blood Cell (RBC) Count 5.16 10x6/uL (4.32-5.72); White Blood Cell (WBC) Count 4.2 10x3/uL (3.5-10.5)
[2023-04-10] MEDS ORDERED: Ipratropium/Albuterol 3 ML NEB ONE (03:45)
[2023-04-10 03:58] LABS: Anion Gap 22 mmol/L (10-20); BUN (Urea Nitrogen) 21 mg/dL (8.4-25.7); Calc. Creatinine Clearance 84 mL/min (70-130); Calcium 9.3 mg/dL (7.8-10.44); Carbon Dioxide 24 mmol/L (23-31); Chloride 100 mmol/L (98-107); Estimated GFR 82; Glucose 244 mg/dL (80-115); Magnesium 2.1 mg/dL (1.6-2.6); Potassium 3.5 mmol/L (3.5-5.1); Sodium 142 mmol/L (136-145)
[2023-04-10 06:46] VITALS: BMI 23.2
[2023-04-10] MEDS: Mometasone/Formoterol 200/5 60 PUFF INH SCH ×2 (07:00→20:54)
[2023-04-10] MEDS ORDERED: Potassium Chloride 20 MEQ TAB PO SCH (08:00)
[2023-04-10] MEDS: Loratadine 10 MG TAB PO SCH (08:48)
[2023-04-10] MEDS: Aspirin 81 mg Enteric Coated Tablet PO SCH (08:48)
[2023-04-10] MEDS: Atorvastatin Calcium 40 MG TAB PO SCH (09:49)
[2023-04-10] MEDS: Clopidogrel Bisulfate 75 MG TAB PO SCH (09:49)
[2023-04-10] MEDS ORDERED: Phenol 118 ML BOT PO PRN (13:03)
[2023-04-10] MEDS ORDERED: hydrOXYzine 25 MG TAB PO PRN (13:03)
[2023-04-10] MEDS ORDERED: Guaifenesin DM 100-10/5 ML UDCUP PO PRN (13:06)
[2023-04-10] MEDS ORDERED: Mometasone/Formoterol 200/5 60 PUFF INH SCH (18:30)
[2023-04-10] MEDS ORDERED: Lorazepam 2 MG/ML VIAL ONE (22:27)
[2023-04-10] MEDS ORDERED: Lorazepam 2 MG/ML VIAL SLOW IVP SCH (22:45)
[2023-04-11] MEDS: Ipratropium/Albuterol 3 ML NEB NEB SCH ×5 (00:10→14:12)
[2023-04-11 05:52] VITALS: TEMP 98
[2023-04-11] MEDS: Mometasone/Formoterol 200/5 60 PUFF INH SCH ×2 (07:30→08:48)
[2023-04-11] MEDS: Aspirin 81 mg Enteric Coated Tablet PO SCH (08:21)
[2023-04-11] MEDS: Atorvastatin Calcium 40 MG TAB PO SCH (08:21)
[2023-04-11] MEDS: Loratadine 10 MG TAB PO SCH (08:22)
[2023-04-11] MEDS: Clopidogrel Bisulfate 75 MG TAB PO SCH (08:22)
[2023-04-11 08:23] VITALS: BP 136/90
[2023-04-11] MEDS ORDERED: Azithromycin 250 MG TAB PO SCH (09:00)
[2023-04-11] MEDS ORDERED: Amlodipine 10 MG TAB PO SCH (09:00)
[2023-04-11] MEDS ORDERED: methylPREDNISolone Acetate 40 mg/ml Vial IM SCH (09:00)
[2023-04-11] MEDS ORDERED: hydrOXYzine 25 MG TAB PO SCH (15:00)
[2023-04-12] MEDS ORDERED: predniSONE 20 MG TAB PO SCH (08:00)
== END 2023-04-11 16:15 | disposition home health service (06) | DRG 189 ==
LOC: CSHERS 11:02 → CSHERHOLD 17:43 → CSHIMCU 04-10 06:32
PROVIDERS: ADMIT Internal Medicine; ATTEND Internal Medicine
PROC: 4A033R1 Measurement of Arterial Saturation, Peripheral, Percutaneous Approach (ICD-10-PCS; principal; 2023-04-09)
PROC: 5A09357 Assistance with Respiratory Ventilation, Less than 24 Consecutive Hours, Continuous Positive Airway Pressure (ICD-10-PCS; 2023-04-09)
PROC: 5A0935A Assistance with Respiratory Ventilation, Less than 24 Consecutive Hours, High Flow/Velocity Cannula (ICD-10-PCS; 2023-04-10)
DX: J96.21 Acute and chronic respiratory failure with hypoxia (principal); J45.901 Unspecified asthma with (acute) exacerbation; J44.1 Chronic obstructive pulmonary disease with (acute) exacerbation; E87.1 Hypo-osmolality and hyponatremia; Z20.822 Contact with and (suspected) exposure to COVID-19; I10 Essential (primary) hypertension; E78.5 Hyperlipidemia, unspecified; E11.9 Type 2 diabetes mellitus without complications; F41.9 Anxiety disorder, unspecified; E87.6 Hypokalemia; F32.A Depression, unspecified; R13.12 Dysphagia, oropharyngeal phase; I25.10 Atherosclerotic heart disease of native coronary artery without angina pectoris; Z88.6 Allergy status to analgesic agent; Z88.8 Allergy status to other drugs, medicaments and biological substances; Z87.891 Personal history of nicotine dependence; Z95.5 Presence of coronary angioplasty implant and graft; Z98.52 Vasectomy status; Z83.3 Family history of diabetes mellitus; Z82.49 Family history of ischemic heart disease and other diseases of the circulatory system; I25.2 Old myocardial infarction; Z79.02 Long term (current) use of antithrombotics/antiplatelets; Z79.899 Other long term (current) drug therapy; Z79.52 Long term (current) use of systemic steroids; Z79.82 Long term (current) use of aspirin
CPT/HCPCS: 36415; 36600; 71045; 80048; 80053; 82785; 82805; 83735; 83880; 84484; 85025; 93005; 94640; 94660; 94664; 94760; 94762; 96374; 96375; J0696; J1030; J1650; J2060; J2920; J2930; J3475; J3490; J7611; J7620